=== PATIENT | female | born 1960 | race Caucasian/White ===

== ENCOUNTER → 2017-08-19 | Outpatient (CLI) | payer OTHER ==
[2017-08-19 12:38] LABS: BASO % 0.7 % (0.0-1.0); EOS # 0.1 10^3/uL (0.0-0.50); HEMATOCRIT 35.6 % (36.0-47.0); HEMOGLOBIN 11.5 g/dl (12.0-16.0); IMMATURE GRANULOCYTE % 0.2 % (0-3.0); LYMPH # 1.6 10^3/uL (1.5-4.5); LYMPH % 25.4 % (24.0-44.0); MEAN CORPUSCULAR HEMOGLOBIN 31.5 pg (27.0-33.0); MEAN CORPUSCULAR HGB CONC 32.3 g/dl (32.0-36.5); MEAN CORPUSCULAR VOLUME 97.5 fl (80.0-96.0); MONO # 0.3 10^3/uL (0.0-0.8); MONO % 5.4 % (0.0-5.0); NEUTROPHILS # 4.1 10^3/uL (1.8-7.7); NEUTROPHILS % 66.3 % (36.0-66.0); PLATELET COUNT, AUTOMATED 230 10^3/uL (150-450); RED BLOOD COUNT 3.65 10^6/uL (4.00-5.40); RED CELL DISTRIBUTION WIDTH 11.9 % (11.5-14.5); WHITE BLOOD COUNT 6.1 10^3/uL (4.0-10.0)
[2017-08-19 13:14] LABS: ALBUMIN/GLOBULIN RATIO 1.33 (1.00-1.93); ALKALINE PHOSPHATASE 49 U/L (45-117); ALT/SGPT 22 U/L (12-78); ANION GAP 7 MEQ/L (8-16); AST/SGOT 13 U/L (7-37); BILIRUBIN,TOTAL 0.3 MG/DL (0.2-1.0); BLOOD UREA NITROGEN 13 MG/DL (7-18); CALCIUM LEVEL 8.8 MG/DL (8.5-10.1); CARBON DIOXIDE LEVEL 29 MEQ/L (21-32); CHLORIDE LEVEL 106 MEQ/L (98-107); CHOLESTEROL LEVEL 171 MG/DL (<200); CREATININE FOR GFR 0.68 MG/DL (0.55-1.30); FREE T3 2.7 PG/ML (2.2-4.0); FREE T4 0.77 NG/DL (0.76-1.46); GLOMERULAR FILTRATION RATE > 60.0 (>51); GLUCOSE, FASTING 89 MG/DL (70-100); HDL CHOLESTEROL 83 MG/DL (>40); LDL CHOLESTEROL 58.8 MG/DL (<100); NON-HDL-C 88 MG/DL; POTASSIUM SERUM 4.2 MEQ/L (3.5-5.1); SODIUM LEVEL 142 MEQ/L (136-145); THYROID STIMULATING HORMONE 0.802 uIU/ML (0.358-3.740); TRIGLYCERIDES LEVEL 146 MG/DL (<150)
== END ==
LOC: M WUC 10:22
DX: M35.00 Sjogren syndrome, unspecified (principal); E03.9 Hypothyroidism, unspecified; Z13.220 Encounter for screening for lipoid disorders

== ENCOUNTER 2017-08-20 15:54 | Emergency (ER) | payer OTHER ==
[2017-08-20] MEDS: ONDANSETRON 4MG/2ML VIAL (J2405) IV (18:11)
[2017-08-20] MEDS: KETOROLAC 30 MG/ML VIAL (J1885) IV (18:12)
[2017-08-20] MEDS: MORPHINE 4 MG/ML 1ML VIAL (J2270) IV (19:05)
== END 2017-08-20 19:59 | disposition home or self-care (01) ==
LOC: M ED 15:54
DX: M54.12 Radiculopathy, cervical region (principal); H69.91 Unspecified Eustachian tube disorder, right ear; F41.9 Anxiety disorder, unspecified; F33.9 Major depressive disorder, recurrent, unspecified; Z79.899 Other long term (current) drug therapy; Z79.890 Hormone replacement therapy; Z88.8 Allergy status to other drugs, medicaments and biological substances; Z91.041 Radiographic dye allergy status
CPT/HCPCS: J2270

== ENCOUNTER → 2017-09-15 | Outpatient (CLI) | payer OTHER | LOC: M PAIN 14:45 | DX: M96.1 Postlaminectomy syndrome, not elsewhere classified (principal); M54.12 Radiculopathy, cervical region; M32.9 Systemic lupus erythematosus, unspecified; M79.7 Fibromyalgia; G43.909 Migraine, unspecified, not intractable, without status migrainosus; M35.00 Sjogren syndrome, unspecified; Z79.899 Other long term (current) drug therapy; Z88.1 Allergy status to other antibiotic agents; Z91.013 Allergy to seafood | CPT/HCPCS: G0463 ==

== ENCOUNTER → 2018-02-27 | Outpatient (REF) | payer OTHER | LOC: M LAB REF 18:36 | DX: R30.0 Dysuria (principal) ==

== ENCOUNTER → 2018-12-08 | Outpatient (CLI) | payer OTHER ==
[~2018-12-08] MED LIST: CEFD1CAP8 PO; CYCL10TA; FOLI1TAB11; HYDR200T3; IBUP-1114 PO; LEVO25TA5; LYRI75CA PO; METO1TAB32; PERC5TAB12 PO; PILO5TAB3; RIZA10TA4; TRAM50TA2; TYLE325T5 PO; VENL150C43; ZOLP5TAB
[2018-12-08 12:10] LABS: ALBUMIN 3.9 GM/DL (3.2-5.2); ALT/SGPT 35 U/L (12-78); BILIRUBIN,TOTAL 0.1 MG/DL (0.2-1.0); BLOOD UREA NITROGEN 17 MG/DL (7-18); CALCIUM LEVEL 8.9 MG/DL (8.5-10.1); CARBON DIOXIDE LEVEL 30 MEQ/L (21-32); CHLORIDE LEVEL 103 MEQ/L (98-107); CREATININE FOR GFR 0.74 MG/DL (0.55-1.30); FREE T4 0.77 NG/DL (0.76-1.46); GLOMERULAR FILTRATION RATE > 60.0 (>51); GLUCOSE, FASTING 78 MG/DL (70-100); POTASSIUM SERUM 4.2 MEQ/L (3.5-5.1); SODIUM LEVEL 139 MEQ/L (136-145); TOTAL PROTEIN 7.4 GM/DL (6.4-8.2)
[2018-12-08 12:29] LABS: FREE T3 2.8 PG/ML (2.2-4.0)
== END ==
LOC: M LAB 10:42
PROVIDERS: ATTEND Nurse Practitioner Family
DX: E03.9 Hypothyroidism, unspecified (principal)

== ENCOUNTER → 2018-12-09 | Outpatient (CLI) | payer OTHER ==
--- NOTE | 2018-12-27 00:18 | ECWPNPC ---
PATIENT NAME: FERNANDO CINTRON : 1960 GENDER: FEMALE VISIT DATE: 12/09/2018 DISCHARGE DATE: 12/09/18 1057 VISIT LOCKED DATE TIME: PHYSICIAN: RAFAEL MICHAELS RESOURCE: RAFAEL MICHAELS REASON FOR APPOINTMENT 1. LUPUS FLAREUP HISTORY OF PRESENT ILLNESS HISTORY OF PRESENT ILLNESS: HERE FOR F/U OF CHRONIC PAIN ASSOCIATED WITH LUPUS.HAVING SEVERE FLARE UP OF LEG PAIN AND GENERALIZED JOINT PAIN.RATING PAIN VAS 6/10.HAS BEEN OFF LUPUS MEDICATION.DESCRIBES PAIN GENERALIZED JOINT PAIN AND DEEP ACHING.HAS BEEN WITHOUT PAIN MEDICATION FOR SEVERAL MONTHS LAST VISIT HERE WAS SEVERAL MONTHS AGO. PAIN THE PATIENT DESCRIBES THE PAIN... FALL RISK SCREENING: SCREENING :NO FALLS REPORTED IN THE LAST YEAR CURRENT MEDICATIONS TAKING LEVOTHYROXINE SODIUM 25 MCG TABLET 1 TABLET ON AN EMPTY STOMACH IN THE MORNING ORALLY ONCE A DAY TAKING FOLIC ACID 1 MG TABLET 1 TABLET ORALLY ONCE A DAY TAKING EFFEXOR XR 150 MG CAPSULE EXTENDED RELEASE 24 HOUR 1 CAPSULE WITH FOOD ORALLY ONCE A DAY TAKING CALCIUM + D3 600-200 MG-UNIT TABLET 1 TABLET WITH A MEAL ORALLY ONCE A DAY TAKING MELATONIN 10 MG CAPSULE ORALLY TAKING MAXALT 10 MG TABLET 1 TABLET NEEDED ONE TIME ORALLY ONCE A DAY TAKING METOPROLOL SUCCINATE ER 25 MG TABLET EXTENDED RELEASE 24 HOUR 1 TABLET ORALLY ONCE A DAY TAKING MOTRIN 800 MG TABLET 1 TABLET WITH FOOD OR MILK NEEDED ORALLY THREE TIMES A DAY NOT-TAKING FLEXERIL 10 MG TABLET 2 TABLET NEEDED ORALLY BEFORE BEDTIME NOT-TAKING HYDROXYCHLOROQUINE 200 MG 2 TABS ORALLY DAILY NOT-TAKING PILOCARPINE HCL 5 MG TABLET 1 TABLET ORALLY THREE TIMES A DAY NOT-TAKING AMBIEN 5 MG TABLET 1 TABLET AT BEDTIME ORALLY ONCE A DAY NOT-TAKING LYRICA 75 MG CAPSULE 1 CAP ORALLY BID MDD2 NOT-TAKING PERCOCET 5-325 MG TABLET 1 TABLET NEEDED ORALLY EVERY 6 HRS PRN MDD4 NOT-TAKING ULTRAM 50 MG TABLET 1 TABLET NEEDED ORALLY EVERY 6 HRS PRN MDD4 MEDICATION LIST REVIEWED AND RECONCILED WITH THE PATIENT PAST MEDICAL HISTORY 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 HOSPITALIZATION/MAJOR DIAGNOSTIC PROCEDURE SEE ABOVE REVIEW OF SYSTEMS REVIEWED BY: PROVIDER: RAFAEL MOSLEY . CONSTITUTIONAL: ANY CHANGE IN YOUR MEDICAL CONDITION? NO . CHILLS NO . FEVER NO . INFECTION: DO YOU HAVE NEW INFECTIONS? NO . DO YOU HAVE HISTORY OF MRSA? NO . MUSCULOSKELETAL: ANY NEW PATTERNS OF PAIN OR NUMBNESS? YES PT REPORTS AN EXACERBATION OF HER LUPUS, AND A GENERALIZED INCREASE IN PAIN . GASTROENTEROLOGY: ANY NEW CHANGE IN BOWEL CONTROL? NO . GENITOURINARY: ANY NEW CHANGE IN BLADDER CONTROL? NO . IS THERE A CHANCE YOU COULD BE ? NO . HEMATOLOGY/LYMPH: DO YOU TAKE ANY BLOOD THINNERS? (FOR EXAMPLE- COUMADIN, PLAVIX, AGGRENOX, PLATEL, PRADAXA, OR XARELTO) NO . WHEN WAS YOUR LAST DOSE? DATE: TIME: . NEUROLOGY: HAVE YOU FALLEN IN THE PAST 12 MONTHS? YES PT REPORTS SHE CATCHES HER TOES, AND HAS FALLEN. DENIES INJURY, NO ED VISIT . ANY NEW EXTREMITY NUMBNESS OR WEAKNESS? YES PT REPORTS A NEW NUMBNESS/TINGLING IN RIGHT UPPER ARM EXTENDING TO NECK AND FACE . CARDIOLOGY: DO YOU HAVE A PACEMAKER OR DEFIBRILLATOR? NO . RESPIRATORY: HAVE YOU BEEN SICK IN THE PAST WEEK? NO . FEVER NO . FLU LIKE SYMPTOMS? NO . COUGH NO . INTEGUMENTARY: DO YOU HAVE ANY RASHES OR OPEN SORES? YES FROM LUPUS . ALLERGIC/IMMUNO: ARE YOU ALLERGIC TO IV DYE? YES . ANY NEW ALLERGIES? NO . PSYCHIATRIC: DO YOU HAVE THOUGHTS OF HURTING YOURSELF OR SOMEONE ELSE? NO . ARE YOU ABUSED, NEGLECTED, OR IN AN UNSAFE ENVIRONMENT? NO . ENDOCRINOLOGY: ARE YOU DIABETIC? NO . OTHER: DO YOU NEED ANY PRESCRIPTIONS? NO . IF YES, PLEASE LIST: ____ . ANY NEW PROBLEMS WITH YOUR MEDICATIONS? NO . WHEN DID YOU LAST EAT? ____ . WHEN DID YOU LAST DRINK? ____ . WHAT DID YOU LAST DRINK? ____ . NAME OF PERSON DRIVING YOU HOME? ____ . DO YOU HAVE ANY OTHER QUESTIONS OR CONCERNS PT IS HAVING A FLARE UP OF HER LUPUS AND WOULD LIKE TO DISCUSS GOING BACK ON LYRICA, PERCOCET AGAIN . VITAL SIGNS WT 174.4 LBS, HT 68 IN, BMI 26.51 INDEX, BP 135/72 MM HG, HR 78 /MIN, RR 20 /MIN, TEMP 97.4 F, OXYGEN SAT % 96%, SAFE IN ENV? (Y/N) YES, NA INITIALS SC 10:03, REVIEWED BY: CRYSTAL. EXAMINATION GENERAL EXAMINATION: GENERAL APPEARANCE:ALERT,NO ACUTE DISTRESS. PSYCHAFFECT NORMAL. NECK:TRACHEA MIDLINE. NO CERVICAL OR SUPRACLAVICULAR LYMPHADENOPATHY NOTED. LUNGS:LUNG HOOPER ARE CLEAR TO AUSCULTATION BILATERALLY. GOOD MOVEMENT OF AIR. HEART:S1, S2 IN A REGULAR RATE AND RHYTHM. NO SIGNIFICANT MURMURS, RUBS OR GALLOPS NOTED. MUSCULOSKELETAL:MUSCLE STRENGTH TESTING 5/5 BILATERAL UPPER AND LOWER ETREMITIES. , PALPATION: POSITIVE FOR PAIN OVER C SPINE. POSITIVE FOR PAIN OVER CERVICAL PARASPINALS L>R NORMAL SENSATION TO LIGHT TOUCH,UPPER AND LOWER EXTREMITIES. DIAGNOSTIC:MRI C [id number]-REVIEWED. ASSESSMENTS INFLAMMATORY ARTHROPATHY - M19.90 (PRIMARY) TREATMENT INFLAMMATORY ARTHROPATHY START MEDROL TABLET THERAPY PACK, 4 MG, DIRECTED, ORALLY, DIRECTED, 1, REFILLS 0 START PLAQUENIL TABLET, 200 MG, 1 TABLET WITH FOOD OR MILK, ORALLY, ONCE A DAY, 30 DAYS, 30 TABLET, REFILLS 2 START PERCOCET TABLET, 5-325 MG, 1 TABLET NEEDED, ORALLY, EVERY 6 HRS PRN MDD4, 30 DAYS, 120, REFILLS 0 NOTES: ISTOP REGISTRY REVIEWED . , RISKS AND BENEFITS OF NARCOTIC/OPIOD MEDICATIONS WERE REVIEWED WITH PATIENT - THIS INCLUDES BUT IS NOT LIMITED TO RISK OF DEPENDANCE/DEVELOPMENT OF ADDICTION, MOOD DISTURBANCE AND DEPRESSION, OSTEOPOROSIS, HORMONAL AND LABIDAL CHANGES, RESPIRATORY DEPRESSION AND . PATIENT IS ADVISED NOT TO DRIVE OR DRINK ALCOHOL WHILE ON THESE MEDICATIONS, [facility] NARCOTIC AGREEMENT WAS REVIEWED AND SIGNED TODAY BY THE PATIENT. SEE ATTACHED DOCUMENT FOR FULL DETAILS; SPECIFIC ISSUES WERE REVIEWED: 1) KEEP PAIN MEDS IN THEIR ORIGINAL BOTTLES AND ANY WEEKLY PLANNERS ARE TO BE BROUGHT TO THE PAIN CENTER AT EVERY VISIT. 2) THE PATIENT IS NOT TO INCREASE DOSING OR TIMING OF THEIR PAIN MEDICATION WITHOUT SPECIFIC DIRECTION OF THEIR PAIN CENTERPROVIDER (NOT ER OR OTHER PROVIDERS). 3) ALL PAIN MEDS ARE TO BE KEPT SECURED, IN A LOCKED BOX. 4) NO PAIN MEDS ARE TO BE SHARED WITH ANY OTHER PERSON FOR ANY REASON. 5) NO PAIN MEDS MAY BE TAKEN FROM ANY FRIENDS OR RELATIVES FOR ANY REASON 6) NO MEDS OR SUBSTANCES WHICH ARE NOT LEGAL ARE TO BE USED- NO MARIJUANA, NO COCAINE, AMPHETAMINES, HEROIN, OR OTHERS ARE EVER TO BE USED. 7)URINE TESTING IS DONE TO ACCOUNT FOR MEDS AND SUBSTANCES BEING TAKEN AND WILL BE DONE RANDOMLY. PREVENTIVE MEDICINE PAIN CLINIC TEACHING: MEDICATIONS REVIEWED MEDICATION CHANGES, PT STATES SHE IS FAMILIAR WITH THESE MEDS. 12/09/18 LAS. PROCEDURE CODES FA211 ESTABILISHED PATIENT [facility] CHARGE DISPOSITION & COMMUNICATION FOLLOW UP 6 WEEKS ELECTRONICALLY SIGNED BY DIMITRI FAUSTIN ON 12/26/2018 AT 04:47 PM EDT DISCLAIMER : THIS IS A VISIT SUMMARY EXTRACTED FROM THE [employer] CHART. IT IS NOT A COPY OF THE [employer] PROGRESS NOTE. [place]
== END ==
LOC: M PAIN 09:45
PROVIDERS: ATTEND Nurse Practitioner Family
DX: M19.90 Unspecified osteoarthritis, unspecified site (principal); M32.9 Systemic lupus erythematosus, unspecified; G89.29 Other chronic pain; Z79.899 Other long term (current) drug therapy; Z88.0 Allergy status to penicillin; Z91.013 Allergy to seafood

== ENCOUNTER 2019-01-08 11:21 | Emergency (ER) | payer OTHER ==
[~2019-01-08] VITALS: Ht 175.3 cm; Wt 75.0 kg
[2019-01-08] MEDS ORDERED: AMOX875T PO (12:09)
[2019-01-08] MEDS ORDERED: PRED20TA PO (12:09)
[2019-01-08] MEDS ORDERED: ACETAMINOPHEN 500 MG TAB PO ONE (12:15)
[2019-01-08] MEDS ORDERED: BENZOCAINE 20% GEL 9GM TUBE (ANBESOL MAX STRENGTH) TOP ONE (12:15)
[2019-01-08] MEDS ORDERED: LIDOCAINE 2% MDV 20 ML VIAL SC ONE (12:45)
[2019-01-08] MEDS ORDERED: SALA1TAB PO (13:11)
[2019-01-08 13:12] VITALS: BP 133/65
== END 2019-01-08 13:19 | disposition home or self-care (01) ==
LOC: M ED 12:15
DX: S02.5XXA Fracture of tooth (traumatic), initial encounter for closed fracture (principal); K08.89 Other specified disorders of teeth and supporting structures; X58.XXXA Exposure to other specified factors, initial encounter; Y92.9 Unspecified place or not applicable; Y93.9 Activity, unspecified; Y99.9 Unspecified external cause status; E03.9 Hypothyroidism, unspecified; M32.9 Systemic lupus erythematosus, unspecified; F41.9 Anxiety disorder, unspecified; F32.9 Major depressive disorder, single episode, unspecified; Z86.79 Personal history of other diseases of the circulatory system; Z79.899 Other long term (current) drug therapy; Z91.041 Radiographic dye allergy status; Z91.89 Other specified personal risk factors, not elsewhere classified

== ENCOUNTER 2019-01-10 14:30 | Emergency (ER) | payer OTHER ==
[~2019-01-10] VITALS: Ht 175.3 cm; Wt 75.0 kg
[~2019-01-10 14:30] MED LIST changes: +AMOX875T PO; +PRED20TA PO; +SALA1TAB PO
[2019-01-10 17:34] VITALS: BP 137/67
== END 2019-01-10 17:41 | disposition home or self-care (01) ==
LOC: M ED 14:30
DX: K12.0 Recurrent oral aphthae (principal); Z79.899 Other long term (current) drug therapy; Z88.8 Allergy status to other drugs, medicaments and biological substances; Z91.041 Radiographic dye allergy status

== ENCOUNTER → 2019-01-17 | Outpatient (CLI) | payer OTHER ==
--- NOTE | 2019-01-19 00:14 | ECWPNPC ---
PATIENT NAME: FERNANDO CINTRON : 1960 GENDER: FEMALE VISIT DATE: 01/17/2019 DISCHARGE DATE: 01/17/19 1219 VISIT LOCKED DATE TIME: PHYSICIAN: SUSIE VALLADARES RESOURCE: SUSIE VALLADARES REASON FOR APPOINTMENT 1. 6 WKS PER LB/ LUPUS HISTORY OF PRESENT ILLNESS HISTORY OF PRESENT ILLNESS: PAIN THE PATIENT DESCRIBES THE PAIN... 58 YEAR OLD FEMALE IN FOR CHRONIC PAIN FOLLOW UP RELATED TO HER LUPUS. SHE ADMITS TODAY THAT HER PAIN IS AT A 2/10 AND ATTRIBUTES THAT TO A RECENT SHINGLES OUTBREAK IN HER MOUTH. FALL RISK SCREENING: SCREENING :NO FALLS REPORTED IN THE LAST YEAR CURRENT MEDICATIONS TAKING LEVOTHYROXINE SODIUM 25 MCG TABLET 1 TABLET ON AN EMPTY STOMACH IN THE MORNING ORALLY ONCE A DAY TAKING FOLIC ACID 1 MG TABLET 1 TABLET ORALLY ONCE A DAY TAKING EFFEXOR XR 150 MG CAPSULE EXTENDED RELEASE 24 HOUR 1 CAPSULE WITH FOOD ORALLY ONCE A DAY TAKING CALCIUM + D3 600-200 MG-UNIT TABLET 1 TABLET WITH A MEAL ORALLY ONCE A DAY TAKING MELATONIN 10 MG CAPSULE ORALLY AT BEDTIME NEEDED TAKING MAXALT 10 MG TABLET 1 TABLET NEEDED ONE TIME ORALLY ONCE A DAY TAKING METOPROLOL SUCCINATE ER 25 MG TABLET EXTENDED RELEASE 24 HOUR 1 TABLET ORALLY ONCE A DAY TAKING MOTRIN 800 MG TABLET 1 TABLET WITH FOOD OR MILK NEEDED ORALLY THREE TIMES A DAY NEEDED TAKING PLAQUENIL 200 MG TABLET 1 TABLET WITH FOOD OR MILK ORALLY ONCE A DAY TAKING PERCOCET 5-325 MG TABLET 1 TABLET NEEDED ORALLY EVERY 6 HRS PRN MDD4 TAKING AUGMENTIN 875-125 MG TABLET 1 TABLET ORALLY EVERY 12 HRS NOT-TAKING MEDROL 4 MG TABLET THERAPY PACK DIRECTED ORALLY DIRECTED NOT-TAKING FLEXERIL 10 MG TABLET 2 TABLET NEEDED ORALLY BEFORE BEDTIME NOT-TAKING HYDROXYCHLOROQUINE 200 MG 2 TABS ORALLY DAILY NOT-TAKING PILOCARPINE HCL 5 MG TABLET 1 TABLET ORALLY THREE TIMES A DAY NOT-TAKING AMBIEN 5 MG TABLET 1 TABLET AT BEDTIME ORALLY ONCE A DAY NOT-TAKING LYRICA 75 MG CAPSULE 1 CAP ORALLY BID MDD2 NOT-TAKING PERCOCET 5-325 MG TABLET 1 TABLET NEEDED ORALLY EVERY 6 HRS PRN MDD4 NOT-TAKING ULTRAM 50 MG TABLET 1 TABLET NEEDED ORALLY EVERY 6 HRS PRN MDD4 MEDICATION LIST REVIEWED AND RECONCILED WITH THE PATIENT PAST MEDICAL HISTORY 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 LUPUS (SLE) FIBROMYALGIA SHOULDER BURSITIS ANKYLOSING SPONDYLITIS MIGRAINE HX PE HX SINUS TACHYCARDIA SJOGREN'S DISEASE HEMMORHAGE S/P C SECTION TO SHOCK, REQUIRED 7 UNITS OF BLOOD SHINGLES ALLERGIES ERYTHROMYCIN: VOMITING SHELLFISH: ANAPHYLAXIS - ALLERGY SURGICAL HISTORY CERVICAL ANTERIOR DECOMPRESSIVE DISCECTOMY WITH BONE GRAFT C7-T1 NERVE DECOMPRESSION TO RIGHT LEG LEFT CARPAL TUNNEL SURGERY C SECTION 1985 C SECTION AND HYSERECTOMY 1990 FAMILY HISTORY FATHER: ALIVE, ALZHEIMER'S MOTHER: ALIVE 76 YRS, BREAST CANCER, DIAGNOSED WITH HEART DISEASE SOCIAL HISTORY GENERAL: TOBACCO USE ARE YOU A:NONSMOKER PAIN CLINIC PFS, CLERGY, PUBLIC HEALTH REFERRALS HAS THE PATIENT BEEN EDUCATED REGARDING HIS/HER PLAN OF CARE?YES HAS THE PATIENT BEEN EDUCATED REGARDING PAIN, THE RISK FOR PAIN, THE IMPORTANCE OF EFFECTIVE PAIN MANAGEMENT, AND THE PAIN ASSESSMENT PROCESS?YES CAFFEINE CAFFEINE USE? OCCASIONAL MONSTER DRINK IF NEEDED ADVANCE DIRECTIVE ADVANCE DIRECTIVE DISCUSSED WITH PATIENT:YES HCPIS KALEY CINTRON [phone] EDUCATION LEVEL OF EDUCATION:FINISHED COLLEGE [employer]AN [id number] YARSANISM LANGUAGE LANGUAGES SPOKEN:JORDANIAN ALCOHOL SCREENING DID YOU HAVE A DRINK CONTAINING ALCOHOL IN THE PAST YEAR?YES HOW OFTEN DID YOU HAVE A DRINK CONTAINING ALCOHOL IN THE PAST YEAR?TWO TO THREE TIMES PER WEEK (3 POINTS) HOW MANY DRINKS DID YOU HAVE ON A TYPICAL DAY WHEN YOU WERE DRINKING IN THE PAST YEAR?3 OR 4 (1 POINT) HOW OFTEN DID YOU HAVE SIX OR MORE DRINKS ON ONE OCCASION IN THE PAST YEAR?MONTHLY (2 POINTS) POINTS6 INTERPRETATIONPOSITIVE RECREATIONAL DRUG USE DRUG USE?NO 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 HOSPITALIZATION/MAJOR DIAGNOSTIC PROCEDURE SEE ABOVE PULMONARY EMBOLUS REVIEW OF SYSTEMS REVIEWED BY: PROVIDER: KARAN VALLADARES POMPOM MAKER-C . CONSTITUTIONAL: ANY CHANGE IN YOUR MEDICAL CONDITION? YES - SHINGLES - STILL ON ANTIBIOTIC . CHILLS NO . FEVER NO . INFECTION: DO YOU HAVE NEW INFECTIONS? NO . DO YOU HAVE HISTORY OF MRSA? NO . MUSCULOSKELETAL: ANY NEW PATTERNS OF PAIN OR NUMBNESS? YES - RIGHT NECK AND SHOULDER . GASTROENTEROLOGY: ANY NEW CHANGE IN BOWEL CONTROL? NO . GENITOURINARY: ANY NEW CHANGE IN BLADDER CONTROL? NO . IS THERE A CHANCE YOU COULD BE ? NO . HEMATOLOGY/LYMPH: DO YOU TAKE ANY BLOOD THINNERS? (FOR EXAMPLE- COUMADIN, PLAVIX, AGGRENOX, PLATEL, PRADAXA, OR XARELTO) NO . WHEN WAS YOUR LAST DOSE? DATE: TIME: . NEUROLOGY: HAVE YOU FALLEN IN THE PAST 12 MONTHS? YES . ANY NEW EXTREMITY NUMBNESS OR WEAKNESS? NO . CARDIOLOGY: DO YOU HAVE A PACEMAKER OR DEFIBRILLATOR? NO . RESPIRATORY: HAVE YOU BEEN SICK IN THE PAST WEEK? NO . FEVER NO . FLU LIKE SYMPTOMS? NO . COUGH NO . INTEGUMENTARY: DO YOU HAVE ANY RASHES OR OPEN SORES? NO . ALLERGIC/IMMUNO: ARE YOU ALLERGIC TO IV DYE? NO . ANY NEW ALLERGIES? NO . PSYCHIATRIC: DO YOU HAVE THOUGHTS OF HURTING YOURSELF OR SOMEONE ELSE? NO . ARE YOU ABUSED, NEGLECTED, OR IN AN UNSAFE ENVIRONMENT? NO . ENDOCRINOLOGY: ARE YOU DIABETIC? NO . OTHER: DO YOU NEED ANY PRESCRIPTIONS? NO . IF YES, PLEASE LIST: ____ . ANY NEW PROBLEMS WITH YOUR MEDICATIONS? NO . WHEN DID YOU LAST EAT? ____ . WHEN DID YOU LAST DRINK? ____ . WHAT DID YOU LAST DRINK? ____ . NAME OF PERSON DRIVING YOU HOME? ____ . DO YOU HAVE ANY OTHER QUESTIONS OR CONCERNS NO . VITAL SIGNS WT 178.8 LBS, HT 68 IN, BMI 27.18 INDEX, BP 130/86 MM HG, HR 102 /MIN, RR 18 /MIN, TEMP 97.7 F, OXYGEN SAT % 99%, NA INITIALS SC 11:49, REVIEWED BY: MENDOZA. EXAMINATION GENERAL EXAMINATION: GENERALNO ACUTE DISTRESS, WELL NOURISHED AND HYDRATED. PSYCHAPPROPRIATE MOOD AND AFFECT . LUNGS:CLEAR TO AUSCULTATION BILATERALLY, NO WHEEZES, RHONCHI, RALES. HEART:NO MURMURS, REGULAR RATE AND RHYTHM. ASSESSMENTS INFLAMMATORY ARTHROPATHY - M19.90 (PRIMARY) TREATMENT INFLAMMATORY ARTHROPATHY CLINICAL NOTES: 58 YEAR OLD FEMALE IN FOR LUPUS PAIN FOLLOW UP. GIVEN PRESENTING SYMPTOMS AND RESULTS OF PHYSICAL EXAMINATION RECOMMENDED FOLLOW UP SHOULD HER SYMPTOMS RETURN. PATIENT HAS EXPRESSED UNDERSTANDING OF AND WAS IN AGREEMENT WITH TX PLAN. GIVEN TIME TO ASK QUESTIONS AND EXPRESS CONCERNS. , ISTOP REGISTRY REVIEWED AND DEMONSTRATES COMPLLIANCE. (REF # ) BRINGS IN MEDICATIONS WHICH IS APPROPRIATE FOR WHAT WAS DISPENSED. RECENT URINE TOXICOLOGY REVIEWED. NO UNAUTHORIZED MEDICATIONS. NO ILLICIT SUBSTANCES AND PRESCRIBED MEDICATIONS WERE PRESENT. PROCEDURE CODES FA211 ESTABILISHED PATIENT [facility] CHARGE DISPOSITION & COMMUNICATION ELECTRONICALLY SIGNED BY DIMITRI CRONIN ON 01/18/2019 AT 10:57 AM EDT DISCLAIMER : THIS IS A VISIT SUMMARY EXTRACTED FROM THE [employer] CHART. IT IS NOT A COPY OF THE [employer] PROGRESS NOTE. [place]
== END ==
LOC: M PAIN 11:45
PROVIDERS: ATTEND Family Medicine
DX: M19.90 Unspecified osteoarthritis, unspecified site (principal); M79.7 Fibromyalgia; M75.50 Bursitis of unspecified shoulder; M45.9 Ankylosing spondylitis of unspecified sites in spine; G43.909 Migraine, unspecified, not intractable, without status migrainosus; M35.00 Sjogren syndrome, unspecified; M54.12 Radiculopathy, cervical region; Z79.891 Long term (current) use of opiate analgesic; Z79.899 Other long term (current) drug therapy; Z88.1 Allergy status to other antibiotic agents; Z91.013 Allergy to seafood

== ENCOUNTER → 2019-09-14 | Outpatient (CLI) | payer OTHER ==
[~2019-09-14] MED LIST changes: -RIZA10TA4; +RIZA10TA58
[2019-09-14 11:33] LABS: HEMATOCRIT 36.2 % (36.0-47.0); HEMOGLOBIN 11.8 g/dl (12.0-15.5); MEAN CORPUSCULAR HEMOGLOBIN 31.1 pg (27.0-33.0); MEAN CORPUSCULAR HGB CONC 32.6 g/dl (32.0-36.5); MEAN CORPUSCULAR VOLUME 95.3 fl (80.0-96.0); PLATELET COUNT, AUTOMATED 225 10^3/uL (150-450); WHITE BLOOD COUNT 7.2 10^3/uL (4.0-10.0)
[2019-09-14 11:58] LABS: ALBUMIN 4.3 GM/DL (3.2-5.2); ALT/SGPT 31 U/L (12-78); BILIRUBIN,TOTAL 0.2 MG/DL (0.2-1.0); BLOOD UREA NITROGEN 25 MG/DL (7-18); CALCIUM LEVEL 9.4 MG/DL (8.5-10.1); CARBON DIOXIDE LEVEL 27 MEQ/L (21-32); CHLORIDE LEVEL 102 MEQ/L (98-107); CREATININE FOR GFR 0.72 MG/DL (0.55-1.30); GLOMERULAR FILTRATION RATE > 60.0 (>51); GLUCOSE, FASTING 82 MG/DL (70-100); POTASSIUM SERUM 4.4 MEQ/L (3.5-5.1); RHEUMATOID FACTOR QUANT < 10.0 IU/ML (<15.0); SODIUM LEVEL 136 MEQ/L (136-145); TOTAL PROTEIN 7.5 GM/DL (6.4-8.2)
[2019-09-14 12:17] LABS: ERYTHROCYTE SEDIMENTATION RATE 12 mm/hr (0-30)
[2019-09-16 00:11] LABS: ANTI DOUBLE STRAND-DNA AB <1 IU/mL (0-9); ANTINUCLEAR ANTIBODIES DIRECT Positive (Negative); CYCLIC CITRULLINATED PEPTIDE 8 units (0-19); RNP ANTIBODIES <0.2 AI (0.0-0.9); SJOGREN'S ANTI SS-A <0.2 AI (0.0-0.9); SJOGREN'S ANTI SS-B 1.1 AI (0.0-0.9); SMITH ANTIBODIES <0.2 AI (0.0-0.9)
== END ==
LOC: M LAB 10:32
PROVIDERS: ATTEND Registered Nurse Community Health
DX: M32.9 Systemic lupus erythematosus, unspecified (principal)

== ENCOUNTER 2019-11-26 19:19 | Emergency (ER) | payer OTHER ==
[~2019-11-26] VITALS: Ht 175.3 cm; Wt 75.0 kg
[~2019-11-26 19:19] MED LIST changes: +CYCL-707; -CYCL10TA
[2019-11-26 19:20] VITALS: BP 171/81
[2019-11-26] MEDS ORDERED: AUGM875T28 PO ×2 (19:39→20:11)
[2019-11-26] MEDS ORDERED: NORC1TAB7 PO (20:11)
[2019-11-26] MEDS ORDERED: NORCO, ANEXSIA 5/325MG TABLET (HYDROcodone/ACETAMINOPHEN) PO ONE (20:15)
== END 2019-11-26 20:17 | disposition home or self-care (01) ==
LOC: M ED 19:19
DX: R68.84 Jaw pain (principal); K02.9 Dental caries, unspecified

== ENCOUNTER 2020-01-06 07:48 | Emergency (ER) | payer OTHER ==
[~2020-01-06] VITALS: Ht 172.7 cm; Wt 77.3 kg
[~2020-01-06 07:48] MED LIST changes: +AUGM875T28 PO; +NORC1TAB7 PO
[2020-01-06 08:36] LABS: BASO # 0.1 10^3/uL (0.0-0.2); BASO % 0.9 % (0.0-1.0); EOS # 0.1 10^3/uL (0.0-0.5); EOS % 2.2 % (0.0-3.0); HEMATOCRIT 36.9 % (36.0-47.0); HEMOGLOBIN 11.8 g/dl (12.0-15.5); LYMPH # 1.8 10^3/uL (1.5-5.0); LYMPH % 33.3 % (24.0-44.0); MEAN CORPUSCULAR HEMOGLOBIN 30.7 pg (27.0-33.0); MEAN CORPUSCULAR VOLUME 96.1 fl (80.0-96.0); MONO # 0.4 10^3/uL (0.0-0.8); MONO % 7.1 % (0.0-5.0); NEUTROPHILS % 55.8 % (36.0-66.0); PLATELET COUNT, AUTOMATED 198 10^3/uL (150-450); RED BLOOD COUNT 3.84 10^6/uL (4.00-5.40); WHITE BLOOD COUNT 5.5 10^3/uL (4.0-10.0)
[2020-01-06] MEDS ORDERED: NS 500 ML IV ONE (08:45)
[2020-01-06 09:08] LABS: ALBUMIN 3.9 GM/DL (3.2-5.2); ALT/SGPT 24 U/L (12-78); BILIRUBIN,DIRECT < 0.1 MG/DL (0.0-0.2); BILIRUBIN,TOTAL 0.2 MG/DL (0.2-1.0); BLOOD UREA NITROGEN 16 MG/DL (7-18); CALCIUM LEVEL 9.1 MG/DL (8.5-10.1); CARBON DIOXIDE LEVEL 27 MEQ/L (21-32); CHLORIDE LEVEL 106 MEQ/L (98-107); CREATININE FOR GFR 0.88 MG/DL (0.55-1.30); GLOMERULAR FILTRATION RATE > 60.0 (>51); GLUCOSE, FASTING 85 MG/DL (70-100); LIPASE 106 U/L (73-393); POTASSIUM SERUM 4.6 MEQ/L (3.5-5.1); SODIUM LEVEL 140 MEQ/L (136-145); THYROID STIMULATING HORMONE 0.983 uIU/ML (0.358-3.740); TOTAL PROTEIN 7.4 GM/DL (6.4-8.2)
--- NOTE | 2020-01-06 09:18 | REP ---
Clinical: Chest pain . Comparison: 05/17/2015 . Findings: The mediastinum and cardiac silhouette are stable and within normal limits for portable technique. The lung oneill are clear without acute consolidation, effusion, or pneumothorax. Skeletal structures are intact. Impression: No acute cardiopulmonary process appreciated. Electronically Signed by Hoang Galindo MD 01/06/2020 09:09 A
[2020-01-06] MEDS ORDERED: ASPI81TA86 PO (14:40)
[2020-01-06 14:45] VITALS: BP 126/62
--- NOTE | 2020-01-06 16:46 | ECGEPIP ---
[facility] - ED Test Date: 2020-01-06 Pat Name: FERNANDO CINTRON Department: Room: - Gender: Female Dormitory Keeper: : 1960 Requested By: Shaunna Ferrari Order Number: [id number] Reading MD: Shaunna Ferrari Measurements Intervals [place] Rate: 80 P: 75 WI: 160 QRS: 10 QRSD: 88 T: -1 QT: 354 QTc: 409 Interpretive Statements SINUS RHYTHM MODERATE ST DEPRESSION similar to prior EKG 05/29/15 Electronically Signed on 01-06-2020 16:46:11 EDT by Shaunna Ferrari
--- NOTE | 2020-01-06 16:48 | ECGEPIP ---
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
== END 2020-01-06 14:59 | disposition home or self-care (01) ==
LOC: M ED 07:48
DX: R07.9 Chest pain, unspecified (principal); R06.02 Shortness of breath; I10 Essential (primary) hypertension; M32.9 Systemic lupus erythematosus, unspecified; M35.00 Sjogren syndrome, unspecified; Z79.899 Other long term (current) drug therapy; Z79.890 Hormone replacement therapy; Z79.82 Long term (current) use of aspirin; Z88.8 Allergy status to other drugs, medicaments and biological substances; Z91.041 Radiographic dye allergy status

== ENCOUNTER → 2020-06-14 | Outpatient (CLI) | payer OTHER ==
[~2020-06-14] MED LIST changes: +ASPI81TA86 PO
[2020-06-14 07:21] LABS: BASO % 0.4 % (0.0-1.0); EOS # 0.1 10^3/uL (0.0-0.5); EOS % 2.7 % (0.0-3.0); HEMATOCRIT 34.9 % (36.0-47.0); LYMPH # 1.6 10^3/uL (1.5-5.0); LYMPH % 35.6 % (24.0-44.0); MEAN CORPUSCULAR HEMOGLOBIN 31.3 pg (27.0-33.0); MEAN CORPUSCULAR HGB CONC 31.5 g/dl (32.0-36.5); MEAN CORPUSCULAR VOLUME 99.4 fl (80.0-96.0); MONO # 0.3 10^3/uL (0.0-0.8); MONO % 6.4 % (0.0-5.0); NEUTROPHILS # 2.5 10^3/uL (1.5-8.5); NEUTROPHILS % 54.5 % (36.0-66.0); PLATELET COUNT, AUTOMATED 186 10^3/uL (150-450); RED BLOOD COUNT 3.51 10^6/uL (4.00-5.40); WHITE BLOOD COUNT 4.5 10^3/uL (4.0-10.0)
[2020-06-14 07:54] LABS: ALBUMIN 3.6 GM/DL (3.2-5.2); ALT/SGPT 22 U/L (12-78); BILIRUBIN,TOTAL 0.2 MG/DL (0.2-1.0); BLOOD UREA NITROGEN 15 MG/DL (7-18); CALCIUM LEVEL 8.5 MG/DL (8.5-10.1); CARBON DIOXIDE LEVEL 26 MEQ/L (21-32); CHLORIDE LEVEL 108 MEQ/L (98-107); CHOLESTEROL LEVEL 187 MG/DL (<200); CHOLESTEROL RISK RATIO 2.226 (<5); CREATININE FOR GFR 0.76 MG/DL (0.55-1.30); GLOMERULAR FILTRATION RATE > 60.0 (>51); GLUCOSE, FASTING 116 MG/DL (70-100); HDL CHOLESTEROL 84 MG/DL (>40); LDL CHOLESTEROL 82 MG/DL (<100); NON-HDL-C 103 MG/DL; POTASSIUM SERUM 3.9 MEQ/L (3.5-5.1); SODIUM LEVEL 140 MEQ/L (136-145); TOTAL PROTEIN 6.3 GM/DL (6.4-8.2); TRIGLYCERIDES LEVEL 107 MG/DL (<150)
[2020-06-14 08:34] LABS: APPEARANCE, URINE CLEAR (CLEAR); BACTERIA, URINE AUTO 1+ (NEGATIVE); BILIRUBIN, URINE AUTO NEGATIVE (NEGATIVE); BLOOD, URINE BLOOD NEGATIVE (NEGATIVE); COLOR, URINE STRAW (YELLOW); GLUCOSE, URINE (UA) AUTO NEGATIVE (NEGATIVE); KETONE, URINE AUTO NEGATIVE (NEGATIVE); LEUKOCYTE ESTERASE, URINE AUTO NEGATIVE (NEGATIVE); MUCUS, URINE SMALL (NEGATIVE); NITRITE, URINE AUTO NEGATIVE (NEGATIVE); PROTEIN, URINE AUTO NEGATIVE (NEGATIVE); RBC, URINE AUTO 0 /HPF (0-3); SPECIFIC GRAVITY URINE AUTO 1.005 (1.002-1.035); SQUAMOUS EPITHELIAL CELL UR AU 1 /HPF (0-6); UROBILINOGEN, URINE AUTO 0.2 mg/dL (0.0-2.0); WBC, URINE AUTO 2 /HPF (0-3)
== END ==
LOC: M LAB 06:34
DX: Z01.818 Encounter for other preprocedural examination (principal); I49.9 Cardiac arrhythmia, unspecified; E78.49 Other hyperlipidemia; I10 Essential (primary) hypertension

== ENCOUNTER → 2020-08-08 | Outpatient (REF) ==
[~2020-08-08] MED LIST changes: +ACET-897 PO; +CYAN100049 PO; +D31000TA2 PO; -FOLI1TAB11; +FOLI1TAB11 PO; -HYDR200T3; +HYDR200T3 PO; -LEVO25TA5; +LEVO25TA5 PO; -METO1TAB32; +METO1TAB32 PO; +OMEP40CA97 PO; +OYST1TAB PO; -RIZA10TA58; +RIZA10TA58 PO; -VENL150C43; +VENL150C43 PO
== END ==
LOC: M LABSMTC 13:23
PROVIDERS: ATTEND Pediatrics
DX: Z20.822 Contact with and (suspected) exposure to COVID-19 (principal)

== ENCOUNTER → 2020-08-12 | Outpatient (REF) | LOC: M LABSMTC 13:16 | PROVIDERS: ATTEND Pediatrics | DX: Z11.52 Encounter for screening for COVID-19 (principal) ==

== ENCOUNTER → 2020-08-14 | Outpatient (CLI) | payer OTHER ==
[2020-08-14 16:04] LABS: ALT/SGPT 29 U/L (12-78); BILIRUBIN,TOTAL 0.3 MG/DL (0.2-1.0); BLOOD UREA NITROGEN 18 MG/DL (7-18); CALCIUM LEVEL 9.3 MG/DL (8.5-10.1); CARBON DIOXIDE LEVEL 30 MEQ/L (21-32); CHLORIDE LEVEL 106 MEQ/L (98-107); CHOLESTEROL LEVEL 227 MG/DL (<200); CHOLESTEROL RISK RATIO 3.067 (<5); GLOMERULAR FILTRATION RATE > 60.0 (>51); GLUCOSE, FASTING 80 MG/DL (70-100); HDL CHOLESTEROL 74 MG/DL (>40); LDL CHOLESTEROL 126 MG/DL (<100); NON-HDL-C 153 MG/DL; POTASSIUM SERUM 4.3 MEQ/L (3.5-5.1); SODIUM LEVEL 141 MEQ/L (136-145); TOTAL PROTEIN 7.2 GM/DL (6.4-8.2); TRIGLYCERIDES LEVEL 137 MG/DL (<150)
[2020-08-14 16:05] LABS: APPEARANCE, URINE CLEAR (CLEAR); BACTERIA, URINE AUTO NEGATIVE (NEGATIVE); BILIRUBIN, URINE AUTO NEGATIVE (NEGATIVE); BLOOD, URINE BLOOD NEGATIVE (NEGATIVE); COLOR, URINE YELLOW (YELLOW); GLUCOSE, URINE (UA) AUTO NEGATIVE (NEGATIVE); KETONE, URINE AUTO NEGATIVE (NEGATIVE); LEUKOCYTE ESTERASE, URINE AUTO NEGATIVE (NEGATIVE); MUCUS, URINE SMALL (NEGATIVE); NITRITE, URINE AUTO NEGATIVE (NEGATIVE); PROTEIN, URINE AUTO NEGATIVE (NEGATIVE); RBC, URINE AUTO 1 /HPF (0-3); SPECIFIC GRAVITY URINE AUTO 1.013 (1.002-1.035); SQUAMOUS EPITHELIAL CELL UR AU 0 /HPF (0-6); UROBILINOGEN, URINE AUTO 0.2 mg/dL (0.0-2.0); WBC, URINE AUTO 0 /HPF (0-3)
[2020-08-14 16:16] LABS: BASO % 0.9 % (0.0-1.0); EOS # 0.1 10^3/uL (0.0-0.5); EOS % 2.4 % (0.0-3.0); HEMATOCRIT 37.6 % (36.0-47.0); HEMOGLOBIN 11.9 g/dl (12.0-15.5); LYMPH # 1.3 10^3/uL (1.5-5.0); LYMPH % 30.7 % (24.0-44.0); MEAN CORPUSCULAR HEMOGLOBIN 31.1 pg (27.0-33.0); MEAN CORPUSCULAR HGB CONC 31.6 g/dl (32.0-36.5); MEAN CORPUSCULAR VOLUME 98.2 fl (80.0-96.0); MONO # 0.3 10^3/uL (0.0-0.8); MONO % 7.5 % (0.0-5.0); NEUTROPHILS # 2.5 10^3/uL (1.5-8.5); PLATELET COUNT, AUTOMATED 223 10^3/uL (150-450); RED BLOOD COUNT 3.83 10^6/uL (4.00-5.40); WHITE BLOOD COUNT 4.2 10^3/uL (4.0-10.0)
[2020-08-14 16:18] LABS: INR 0.97; PROTHROMBIN TIME 13.1 SECONDS (12.5-14.3)
== END ==
LOC: M WUC 11:34
DX: Z01.818 Encounter for other preprocedural examination (principal); I49.9 Cardiac arrhythmia, unspecified; I10 Essential (primary) hypertension; E78.49 Other hyperlipidemia

== ENCOUNTER 2020-08-16 07:40 | Day surgery (SDC) | payer OTHER ==
[~2020-08-16] VITALS: Ht 172.7 cm; Wt 81.2 kg
[~2020-08-16 07:40] MED LIST changes: +LR 1,000 ML IV ONE
--- OUTSIDE RECORDS SUMMARY | 2020-08-16 07:44 | CCD | Continuity of Care Document ---
Author Author Martha BRAVO BRICK WHEELER Organization Unknown Address [address] [place] [address] [place] [address] Phone [phone] Care Team Providers Care Maitre D Name Role Phone [facility] AUTM [phone] [facility] AUTM [phone] Problems Active Problems Provider Date Allergic rhinitis Onset: Myalgia & Myositis Unspecified Onset: Depressive disorder Onset: Pulmonary embolism Onset: Neck pain MAYLIN Jorge Onset: 10/15/2012 Social History Type Date Description Comments Sex Unknown Tobacco Use Start: Unknown End: Unknown Quit 2000 ETOH Use Drinks 5 Alcoholic Beverages Per Week Tobacco Use Start: Unknown End: Unknown Patient is a former smoker Smoking Status Reviewed: 11/18/19 Patient is a former smoker Allergies, Adverse Reactions, Alerts Active Allergies Reaction Severity Comments Date Shellfish Anaphlaxisis 06/01/2009 Iodinated Diagnostic Agents 09/07/2011 Medications Active Medications SIG Qnty Indications Ordering Provide r Date Effexor qd Unknown Maxalt 10mg Tablets 1 tab prn and may repeat x1 in 2 hrs 15tabs Unknown Flexeril 10mg Tablets 1 tab tid prn 15tabs Unknown Zyrtec Allergy 10mg Tablets p rn Unknown Toprol XL 25mg Tablets ER 24HR Unknown Folic Acid 400mcg Tablets Unknown Synthroid 125mcg Tablets Unknown Hydroxychloroquine Sulfate 200mg T ablets Once a day Unknown Immunizations Description No Information Available Vital Signs Date Vital Result Comment 11/18/2019 11:47am BP Systolic 120 mmHg BP Diastolic 71 mmHg Heart Rate 80 /min Respiratory Rate 17 /min O2 % BldC Oximetry 99 % Body Temperature 97.6 F Weight 165.00 lb Height 69 inches 5'9" BMI (Body Mass Index) 24.4 kg/m2 Pain Level 4 05/17/2019 2:41pm BP Systolic 129 mmHg BP Diastolic 78 mmHg Heart Rate 91 /min Respiratory Rate 18 /min O2 % BldC Oximetry 97 % Body Temperature 98.3 F Weight 161.00 lb Height 69 inches 5'9" BMI (Body Mass Index) 23.8 kg/m2 Pain Level 0 Results Description No Information Available Procedures Description No Information Available Medical Devices Description No Information Available Encounters Description No Information Available Assessments Description No Information Available Plan of Treatment No Information Available Functional Status Description No Information Available Mental Status Description No Information Available Referrals Description No Information Available
--- OUTSIDE RECORDS SUMMARY | 2020-08-16 07:44 | CCD | Continuity of Care Document ---
Author Author Martha BRAVO PUNCH PRESS OPERATOR HELPER Organization Unknown Address [address] [place] [address] [place] [address] Phone [phone] Care Team Providers Care Occasional Babysitter Name Role Phone [facility] AUTM [phone] [facility] AUTM [phone] Problems Active Problems Provider Date Allergic rhinitis [...] Available Encounters Description No Information Available Assessments Date Code Description Provider 05/20/2020 Z20.828 Contact with and (burroughs spected) exposure to other viral communicable diseases Yary Bravo NP Plan of Treatment No Information Available Functional Status Description No Information Available Mental Status Description No Information Available Referrals Description No Information Available
--- OUTSIDE RECORDS SUMMARY | 2020-08-16 07:44 | CCD | Continuity of Care Document ---
Author Author [facility] Organization [facility] Address Unknown Phone Unavailable Care Team Providers Care Customer Facilities Supervisor Name Role Phone Naomie Sykes MD Unavailable Unavailable Allergies, Adverse Reactions, Alerts Substance Reaction Status Criticality IODINE Active No Information ibuprofen Active No Information erythromycin base Active No Information Medications Medication Instructions Dosage Effective Dates (start - stop) Sta tus Comments hydroxyzine HCl 10 mg tablet TAKE 1 TABLET BY ORAL ROUTE 3 T IMES EVERY DAY 1 tablet - Active pilocarpine 5 mg tablet take 1 tablet by oral route 3 times every day as needed for dry mouth and dry eyes 5 MG - Active hydroxychloroquine 200 mg tablet take 1 tablet by oral route 2 times every day 200 MG - Active folic acid 1 mg tablet take 1 tablet by oral route every day 1 MG - Active metoprolol tartrate 25 mg tablet take 1 tablet by oral route ev rosa day 25 MG - Active Lidocaine Viscous 2 % mucosal solution take [address] by oral route every 3 hours and swish and spit out 15.00 milliliter - Active Tylenol Extra Strength 500 mg tablet take 2 tablet by oral route every 12 hours as needed 1000 MG - Active Ultram 50 mg tablet take 1 tablet by oral route every 8 hours as needed with food 50 MG - Active Prevacid 30 mg capsule,delayed release take 1 capsule by oral route every day before a meal 30 MG - Active Effexor XR 150 mg capsule,extended release take 1 caps ule by oral route every day 150 MG - Active Synthroid 25 mcg tablet take 1 tablet by oral route every day 25 M CG - Active Flexeril 10 mg tablet take 1 tablet by oral route 2 times ev rosa bedtime 1 tablet - Active Maxalt 10 mg tablet take 1 tablet by oral route once, may repeat at 2 hour intervals; do not exceed 30 mg in 24 hours as needed 10 MG - Active Ambien 5 mg tablet take 1 tablet by oral route every day a t bedtime as needed 5 MG - Active Problems Condition Type Effective Dates (start - stop) Clinical S tatus Comments Sicca syndrome, unspecified Diagnosis interpretation (observable en tity) 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 Diagnosis inter pretation (observable entity) Sicca syndrome, unspecified Diagnosis interpretation (observable en tity) Other half-way (current) drug therapy Diagnosis inter pretation (observable entity) Systemic lupus erythematosus, unspecified Diagnosis in terpretation (observable entity) Sicca syndrome, unspecified Diagnosis interpretation (observable en tity) Other half-way (current) drug therapy Diagnosis inter pretation (observable entity) Oral mucositis (ulcerative), unspecified Diagnosis int erpretation (observable entity) Systemic lupus erythematosus, unspecified Diagnosis in terpretation (observable entity) Sicca syndrome, unspecified Diagnosis interpretation (observable en tity) Polymyalgia rheumatica Diagnosis interpretation (observable entity) Other half-way (current) drug therapy Diagnosis inter pretation (observable entity) Oral mucositis (ulcerative), unspecified Diagnosis int erpretation (observable entity) Systemic lupus erythematosus, unspecified Diagnosis in terpretation (observable entity) Sicca syndrome, unspecified Diagnosis interpretation (observable en tity) Polymyalgia rheumatica Diagnosis interpretation (observable entity) 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 Diagnosis inter pretation (observable entity) Shortness of breath Diagnosis interpretation (observable entity) Low vision, one eye, unspecified eye Diagnosis interpr etation (observable entity) Systemic lupus erythematosus, unspecified Diagnosis in terpretation (observable entity) Sicca syndrome, unspecified Diagnosis interpretation (observable en tity) Polymyalgia rheumatica Diagnosis interpretation (observable entity) Systemic lupus erythematosus, unspecified Diagnosis in terpretation (observable entity) Sicca syndrome, unspecified Diagnosis interpretation (observable en tity) Polymyalgia rheumatica Diagnosis interpretation (observable entity) Polymyalgia rheumatica Diagnosis interpretation (observable entity) Systemic lupus erythematosus, unspecified Diagnosis in terpretation (observable entity) Osteoarthritis Problem (finding) - Active Lupus erythematosus Problem (finding) - Active Headache Problem (finding) - Active Depressive disorder Problem (finding) - Active Anxiety Problem (finding) - Active Ankylosing spondylitis Problem (finding) - Active Pneumonia Problem (finding) - Active Procedures Procedure Date No Information Results Test Name Date and Time Measure Units Reference Range Abnormal Flag St atus Comments No Information Advance Directives Directive Yes / No Effective Date File Name No Information Encounters Encounter Description Practice Location Reason(s) For Visit Diagnose s Date Provider Providers Copied on Encounter [facility], [address] [place] [address], [id number], [place] tel:[phone] [facility] No Information Onel Akbar. [address] [place], [place], [id number], [place]. tel:[phone] [facility], [address] [place] [address], [id number], [place] tel:[phone] [facility] No Information Misty Ferrera. [address] [place], [place], [id number], [place]. tel:[phone] [facility], [address] [place] [address], [id number], [place] tel:[phone] [facility] Sicca syndrome, unspecifiedOther half-way (current) drug therapy Carlton Ferrera. [address] [place], [place], [id number], [place]. tel:[phone] Consulting Provider: Tee Duque, [address] [place], [address]. tel:[phone] Provider: Milton Delvalle MD, [facility] [address] [facility] [address], [place], [address]. tel:[phone] Provider: Mauricio Duque, [address] [facility], [address], [place], [address]. tel:[phone] [facility], [address] [place] [address], [id number], [place] tel:[phone] [facility] Sicca syndrome, unspecifiedOther half-way (current) drug therapy Edward Pardo. [address] [place] [address], [id number], [place]. tel:[phone] Consulting Provider: Tee Young MD, [address] [place], [address]. tel:[phone] Provider: Milton Delvalle MD, [facility] [address] [facility] [address], [place], [address]. tel:[phone] Provider: Mauricio Duque, [address] [facility], [facility] [address], [place], [address]. tel:[phone] [facility], [address] [place] [address], [id number], [place] tel:[phone] [facility] No Information Virgilio Walkerher. [address] [place] [address], [id number], [place]. tel:[phone] [facility], [address] [place] [address], [id number], [place] tel:[phone] [facility] Systemic lupus erythematosus, unspecifiedSicca syndrome, unspecified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Oral mucositis (ulcerative), unspecified Ezekiel Romero. [address] [place] [address], [id number], [place]. tel:[phone] Referring Provider: Mauricio Duque, [address] [facility], [address], [place], [address]. tel:[phone] [facility], [address] [place] [address], [id number], [place] tel:[phone] [facility] Systemic lupus erythematosus, unspecifiedSicca syndrome, unspecifiedPolymyalgia rheumatica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Oral mucositis (ulcerative), unspecified Aj Castorena. [address], [place], [place], [id number], [place]. tel:[phone] Referring Provider: Mauricio Duque, [address], [place], [address]. tel:[phone] [facility], [address] [place] [address], [id number], [place] tel:[phone] [facility] Systemic lupus erythematosus, unspecifiedSicca syndrome, unspecifiedPolymyalgia rheumatica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 Akanksha Castorena. [address], [place], [place], [id number], [place]. tel:[phone] Referring Provider: Mauricio Duque, [address], [address] [place] [address], [address]. tel:[phone] [facility], [address] [place] [address], [id number], [place] tel:[phone] [facility] Shortness of breathLow vision, one eye, unspecified eye Philliplauraradha Long ather. [address] [place] [address], [id number], [place]. tel:[phone] Referring Provider: Mauricio Duque, [address], [address] [place] [address], [address]. tel:[phone] [facility], [address] [place] [address], [id number], [place] tel:[phone] [facility] Systemic lupus erythematosus, unspecifiedSicca syndrome, unspecifiedPolymyalgia rheumatica Aj Castorena. [address], [place], [place], [id number], [place]. tel:[phone] Referring Provider: Mauricio Duque, [address], [place], [address]. tel:[phone] [facility], [address] [place] [address], [id number], [place] tel:[phone] [facility] Systemic lupus erythematosus, unspecifiedSicca syndrome, unspecifiedPolymyalgia rheumatica Aj Castorena. [address], [place], [place], [id number], [place]. tel:[phone] Referring Provider: Mauricio Duque, [address] [facility], [place], [address]. tel:[phone] [facility], [address] [place] [address], [id number], [place] tel:[phone] [facility] Polymyalgia rheumaticaSystemic lupus erythematosus, unspecified Valente Castorena. [address], [place], [place], [id number], [place]. tel:[phone] Referring Provider: Mauricio Duque, [address], [place], [address]. tel:[phone] [facility], [address] [place] [address], [id number], [place] tel:[phone] [facility] No Information Deborah Shaffer. [address] [place], [place], [id number], [place]. tel:[phone] Referring Provider: Mauricio Duque, [address] [facility], [address], [place], [address]. tel:[phone] [facility], [address] [place] [address], [id number], [place] tel:[phone] [facility] No Information Aj Castorena. [address], [place], [place], [id number], [place]. tel:[phone] Referring Provider: Mauricio MOSLEY D, [address] [facility], [address], [place], [address]. tel:[phone] Family History Family Member Type Diagnosis Age At Onset Brother Problem (finding) Hypertension Mother Problem (finding) Heart disease Mother Problem (finding) Arthritis Immunizations Vaccine Date Status Comments Influenza, injectable, quadrivalent, spl it virus, 18 years or older Afluria Quad administered Note: Invalid docume nted admin date was . ; Source: Other Provider Influenza, split virus, injectable, 3 years and older Fluvirin [id number] administered Source: Other Provider Influenza virus vaccine, Injection administered Source: Other Provider Pneumococcal polysaccharide PPV23 administered Note: Invalid documented admin date was /. ; Source: Other Provider pneumo (2 yrs or older) (PPV23) administered Source: Other Provider Payers Payer name Insurance type Covered constitution party ID Authorization(s ) [facility] [id number] Social History Type Description Quantity Date Captured Comments Sex Female Smoking Status No Information Vital Signs Date / Time: Height Weight BMI Pulse Rate Blood Pressure Temperatu re Respiratory Rate Body Surface Area Head Circumference BMI percentile Pulse Ox In haled Ox No Information Chief Complaint And Reason For Visit No Information Reason For Referral Reason For Referral No Information Plan Of Treatment Date Type Action Status No Information History Of Present Illness Encounter Date Complaint History Of Present I llness No Information Functional Status Date Functional Assessment No Information Medications Administered Medication Instructions Dosage Effective Dates (start - stop) Sta tus Comments No Information Instructions Date Instruction Additional Informati on Risks/benefits of medications reviewed Labs ordered to check disease activity. Labs ordered to check blood counts, liver and kidney functions to monitor safety of medication. Discussed / Reviewed Labs hold medication and call if any side eff ect develops continue same medication plan call if symptoms worsen Physical Examination Exam Findings Details No Information
--- OUTSIDE RECORDS SUMMARY | 2020-08-16 07:45 | CCD ---
Author Author [facility] Organization [facility] Address Unknown Phone Unavailable Care Team Providers Care Warp Knitter Name Role Phone Jorge, L Dee INSURANCE ADJUSTER Unavailable Unavailable Jorge, L Dee INSURANCE ADJUSTER Unavailable Unavailable Jorge, L Dee INSURANCE ADJUSTER Unavailable Unavailable Jorge, L Dee INSURANCE ADJUSTER Unavailable Unavailable Jorge, L Dee INSURANCE ADJUSTER Unavailable Unavailable [place], L Dee INSURANCE ADJUSTER Unavailable Unavailable Jorge, L Dee INSURANCE ADJUSTER Unavailable Unavailable [place], L Dee INSURANCE ADJUSTER Unavailable Unavailable [place], L Dee INSURANCE ADJUSTER Unavailable Unavailable Jorge, L Dee INSURANCE ADJUSTER Unavailable Unavailable [place], L Dee INSURANCE ADJUSTER Unavailable Unavailable [place], L Dee INSURANCE ADJUSTER Unavailable Unavailable [place], L Dee INSURANCE ADJUSTER Unavailable Unavailable [place], L Dee INSURANCE ADJUSTER Unavailable Unavailable Jorge, L Dee INSURANCE ADJUSTER Unavailable Unavailable Jorge, L Dee INSURANCE ADJUSTER Unavailable Unavailable Jorge, L Dee INSURANCE ADJUSTER Unavailable Unavailable [place], L Dee INSURANCE ADJUSTER Unavailable Unavailable [place], L Dee INSURANCE ADJUSTER Unavailable Unavailable [place], L Dee INSURANCE ADJUSTER Unavailable Unavailable [place], L Dee INSURANCE ADJUSTER Unavailable Unavailable Jorge, L Dee INSURANCE ADJUSTER Unavailable Unavailable Jorge, L Dee INSURANCE ADJUSTER Unavailable Unavailable Jorge, L Dee INSURANCE ADJUSTER Unavailable Unavailable [place], L Dee INSURANCE ADJUSTER Unavailable Unavailable [place], L Dee INSURANCE ADJUSTER Unavailable Unavailable Jorge, L Dee INSURANCE ADJUSTER Unavailable Unavailable Jorge, L Dee INSURANCE ADJUSTER Unavailable Unavailable [place], L Dee INSURANCE ADJUSTER Unavailable Unavailable Jorge, L Dee INSURANCE ADJUSTER Unavailable Unavailable Jorge, L Dee INSURANCE ADJUSTER Unavailable Unavailable Jorge, L Dee INSURANCE ADJUSTER Unavailable Unavailable SEPULVEDA SR, GEORGETTE MEDEL MD Unavailable Unavailable SEPULVEDA SR, GEORGETTE MEDEL MD Unavailable Unavailable SEPULVEDA SR, GEORGETTE MEDEL MD Unavailable Unavailable SEPULVEDA SR, GEORGETTE MEDEL MD Unavailable Unavailable SEPULVEDA SR, GEORGETTE MEDEL MD Unavailable Unavailable SEPULVEDA SR, GEORGETTE MEDEL MD Unavailable Unavailable SEPULVEDA SR, GEORGETTE MEDEL MD Unavailable Unavailable SEPULVEDA SR, GEORGETTE MEDEL MD Unavailable Unavailable SEPULVEDA SR, GEORGETTE MEDEL MD Unavailable Unavailable SEPULVEDA SR, GEORGETTE MEDEL MD Unavailable Unavailable SEPULVEDA SR, GEORGETTE MEDEL MD Unavailable Unavailable SEPULVEDA SR, GEORGETTE MEDEL MD Unavailable Unavailable SEPULVEDA SR, GEORGETTE MEDEL MD Unavailable Unavailable SEPULVEDA SR, GEORGETTE MEDEL MD Unavailable Unavailable SEPULVEDA SR, GEORGETTE MEDEL MD Unavailable Unavailable SEPULVEDA SR, GEORGETTE MEDEL MD Unavailable Unavailable SEPULVEDA SR, GEORGETTE MEDEL MD Unavailable Unavailable SEPULVEDA SR, GEORGETTE MEDEL MD Unavailable Unavailable SEPULVEDA SR, GEORGETTE MEDEL MD Unavailable Unavailable SEPULVEDA SR, GEORGETTE MEDEL MD Unavailable Unavailable SEPULVEDA SR, GEORGETTE MEDEL MD Unavailable Unavailable SEPULVEDA SR, GEORGETTE MEDEL MD Unavailable Unavailable SEPULVEDA SR, GEORGETTE MEDEL MD Unavailable Unavailable SEPULVEDA SR, GEORGETTE MEDEL MD Unavailable Unavailable SEPULVEDA SR, GEORGETTE MEDEL MD Unavailable Unavailable SEPULVEDA SR, GEORGETTE MEDEL MD Unavailable Unavailable SEPULVEDA SR, GEORGETTE MEDEL MD Unavailable Unavailable SEPULVEDA SR, GEORGETTE MEDEL MD Unavailable Unavailable SEPULVEDA SR, GEORGETTE MEDEL MD Unavailable Unavailable SEPULVEDA SR, GEORGETTE MEDEL MD Unavailable Unavailable SEPULVEDA SR, GEORGETTE MEDEL MD Unavailable Unavailable SEPULVEDA SR, GEORGETTE MEDEL MD Unavailable Unavailable SEPULVEDA SR, GEORGETTE MEDEL MD Unavailable Unavailable SEPULVEDA SR, GEORGETTE MEDEL MD Unavailable Unavailable SEPULVEDA SR, GEORGETTE MEDEL MD Unavailable Unavailable SEPULVEDA SR, GEORGETTE MEDEL MD Unavailable Unavailable SEPULVEDA SR, GEORGETTE MEDEL MD Unavailable Unavailable SEPULVEDA SR, GEORGETTE MEDEL MD Unavailable Unavailable SEPULVEDA SR, GEORGETTE MEDEL MD Unavailable Unavailable SEPULVEDA SR, GEORGETTE MEDEL MD Unavailable Unavailable SEPULVEDA SR, GEORGETTE MEDEL MD Unavailable Unavailable SEPULVEDA SR, GEORGETTE MEDEL MD Unavailable Unavailable SEPULVEDA SR, GEORGETTE MEDEL MD Unavailable Unavailable SEPULVEDA SR, GEORGETTE MEDEL MD Unavailable Unavailable SEPULVEDA SR, GEORGETTE MEDEL MD Unavailable Unavailable SEPULVEDA SR, GEORGETTE MEDEL MD Unavailable Unavailable SEPULVEDA SR, GEORGETTE MEDEL MD Unavailable Unavailable SEPULVEDA SR, GEORGETTE MEDEL MD Unavailable Unavailable SEPULVEDA SR, GEORGETTE MEDEL MD Unavailable Unavailable SEPULVEDA SR, GEORGETTE MEDEL MD Unavailable Unavailable SEPULVEDA SR, GEORGETTE MEDEL MD Unavailable Unavailable SEPULVEDA SR, GEORGETTE MEDEL MD Unavailable Unavailable SEPULVEDA SR, GEORGETTE MEDEL MD Unavailable Unavailable SEPULVEDA SR, GEORGETTE MEDEL MD Unavailable Unavailable Sylva, Vee RPA-C Unavailable Unavailable Sylva, Vee RPA-C Unavailable Unavailable Sylva, Vee RPA-C Unavailable Unavailable Sylva, Vee RPA-C Unavailable Unavailable Sylva, Vee RPA-C Unavailable Unavailable Sylva, Vee RPA-C Unavailable Unavailable Sylva, Vee RPA-C Unavailable Unavailable Sylva, Vee RPA-C Unavailable Unavailable Sylva, Vee RPA-C Unavailable Unavailable Sylva, Vee RPA-C Unavailable Unavailable Sylva, Vee RPA-C Unavailable Unavailable Sylva, Vee RPA-C Unavailable Unavailable Sylva, Vee RPA-C Unavailable Unavailable Sylva, Vee RPA-C Unavailable Unavailable Sylva, Vee RPA-C Unavailable Unavailable VINICIUS AGUIRRE MD Unavailable Unavailable VINICIUS AGUIRRE MD Unavailable Unavailable VINICIUS AGUIRRE MD Unavailable Unavailable VINICIUS AGUIRRE MD Unavailable Unavailable VINICIUS AGUIRRE MD Unavailable Unavailable VINICIUS AGUIRRE MD Unavailable Unavailable VINICIUS AGUIRRE MD Unavailable Unavailable VINICIUS AGUIRRE MD Unavailable Unavailable VINICIUS AGUIRRE MD Unavailable Unavailable VINICIUS AGUIRRE MD Unavailable Unavailable VINICIUS AGUIRRE MD Unavailable Unavailable VINICIUS AGUIRRE MD Unavailable Unavailable VINICIUS AGUIRRE MD Unavailable Unavailable VINICIUS AGUIRRE MD Unavailable Unavailable VINICIUS AGUIRRE MD Unavailable Unavailable VINICIUS AGUIRRE MD Unavailable Unavailable VINICIUS AGUIRRE MD Unavailable Unavailable VINICIUS AGUIRRE MD Unavailable Unavailable VINICIUS AGUIRRE MD Unavailable Unavailable VINICIUS AGUIRRE MD Unavailable Unavailable VINICIUS AGUIRRE MD Unavailable Unavailable VINICIUS AGUIRRE MD Unavailable Unavailable VINICIUS AGUIRRE MD Unavailable Unavailable VINICIUS AGUIRRE MD Unavailable Unavailable VINICIUS AGUIRRE MD Unavailable Unavailable VINICIUS AGUIRRE MD Unavailable Unavailable VINICIUS AGUIRRE MD Unavailable Unavailable VINICIUS AGUIRRE MD Unavailable Unavailable VINICIUS AGUIRRE MD Unavailable Unavailable VINICIUS AGUIRRE MD Unavailable Unavailable VINICIUS AGUIRRE MD Unavailable Unavailable VINICIUS AGUIRRE MD Unavailable Unavailable KHAIRALLAH, RAMZI MD Unavailable Unavailable KHAIRALLAH, RAMZI MD Unavailable Unavailable KHAIRALLAH, RAMZI MD Unavailable Unavailable KHAIRALLAH, RAMZI MD Unavailable Unavailable KHAIRALLAH, RAMZI MD Unavailable Unavailable KHAIRALLAH, RAMZI MD Unavailable Unavailable KHAIRALLAH, RAMZI MD Unavailable Unavailable KHAIRALLAH, RAMZI MD Unavailable Unavailable KHAIRALLAH, RAMZI MD Unavailable Unavailable KHAIRALLAH, RAMZI MD Unavailable Unavailable KHAIRALLAH, RAMZI MD Unavailable Unavailable KHAIRALLAH, RAMZI MD Unavailable Unavailable KHAIRALLAH, RAMZI MD Unavailable Unavailable KHAIRALLAH, RAMZI MD Unavailable Unavailable KHAIRALLAH, RAMZI MD Unavailable Unavailable KHAIRALLAH, RAMZI MD Unavailable Unavailable KHAIRALLAH, RAMZI MD Unavailable Unavailable KHAIRALLAH, RAMZI MD Unavailable Unavailable KHAIRALLAH, RAMZI MD Unavailable Unavailable KHAIRALLAH, RAMZI MD Unavailable Unavailable KHAIRALLAH, RAMZI MD Unavailable Unavailable KHAIRALLAH, RAMZI MD Unavailable Unavailable KHAIRALLAH, RAMZI MD Unavailable Unavailable KHAIRALLAH, RAMZI MD Unavailable Unavailable KHAIRALLAH, RAMZI MD Unavailable Unavailable KHAIRALLAH, RAMZI MD Unavailable Unavailable KHAIRALLAH, RAMZI MD Unavailable Unavailable KHAIRALLAH, RAMZI MD Unavailable Unavailable KHAIRALLAH, RAMZI MD Unavailable Unavailable KHAIRALLAH, RAMZI MD Unavailable Unavailable KHAIRALLAH, RAMZI MD Unavailable Unavailable KHAIRALLAH, RAMZI MD Unavailable Unavailable KHAIRALLAH, RAMZI MD Unavailable Unavailable KHAIRALLAH, RAMZI MD Unavailable Unavailable KHAIRALLAH, RAMZI MD Unavailable Unavailable KHAIRALLAH, RAMZI MD Unavailable Unavailable KHAIRALLAH, RAMZI MD Unavailable Unavailable KHAIRALLAH, RAMZI MD Unavailable Unavailable KHAIRALLAH, RAMZI MD Unavailable Unavailable KHAIRALLAH, RAMZI MD Unavailable Unavailable KHAIRALLAH, RAMZI MD Unavailable Unavailable KHAIRALLAH, RAMZI MD Unavailable Unavailable KHAIRALLAH, RAMZI MD Unavailable Unavailable KHAIRALLAH, RAMZI MD Unavailable Unavailable KHAIRALLAH, RAMZI MD Unavailable Unavailable KHAIRALLAH, RAMZI MD Unavailable Unavailable KHAIRALLAH, RAMZI MD Unavailable Unavailable KHAIRALLAH, RAMZI MD Unavailable Unavailable KHAIRALLAH, RAMZI MD Unavailable Unavailable KHAIRALLAH, RAMZI MD Unavailable Unavailable KHAIRALLAH, RAMZI MD Unavailable Unavailable VINICIUS AGUIRRE MD Unavailable Unavailable VINICIUS AGUIRRE MD Unavailable Unavailable VINICIUS AGUIRRE MD Unavailable Unavailable ORDONEZ, NATE CHANO TEAM CDL DRIVER-C, MSN Unavailable Unavailab le ORDONEZ, NATE CHANO TEAM CDL DRIVER-C, MSN Unavailable Unavailab le ORDONEZ, NATE CHANO TEAM CDL DRIVER-C, MSN Unavailable Unavailab le ORDONEZ, NATE CHANO TEAM CDL DRIVER-C, MSN Unavailable Unavailab le ORDONEZ, NATE CHANO TEAM CDL DRIVER-C, MSN Unavailable Unavailab le ORDONEZ, NATE CHANO TEAM CDL DRIVER-C, MSN Unavailable Unavailab le ORDONEZ, NATE CHANO TEAM CDL DRIVER-C, MSN Unavailable Unavailab le ORDONEZ, NATE CHANO TEAM CDL DRIVER-C, MSN Unavailable Unavailab le ORDONEZ, NATE CHANO TEAM CDL DRIVER-C, MSN Unavailable Unavailab le ORDONEZ, NATE CHANO TEAM CDL DRIVER-C, MSN Unavailable Unavailab le ORDONEZ, NATE CHANO TEAM CDL DRIVER-C, MSN Unavailable Unavailab le ORDONEZ, NATE CHANO TEAM CDL DRIVER-C, MSN Unavailable Unavailab le ORDONEZ, NATE CHANO TEAM CDL DRIVER-C, MSN Unavailable Unavailab le ORDONEZ, NATE CHANO TEAM CDL DRIVER-C, MSN Unavailable Unavailab le ORDONEZ, NATE CHANO TEAM CDL DRIVER-C, MSN Unavailable Unavailab le ORDONEZ, NATE CHANO TEAM CDL DRIVER-C, MSN Unavailable Unavailab le ORDONEZ, NATE CHANO TEAM CDL DRIVER-C, MSN Unavailable Unavailab le ORDONEZ, NATE CHANO TEAM CDL DRIVER-C, MSN Unavailable Unavailab le ORDONEZ, NATE CHANO TEAM CDL DRIVER-C, MSN Unavailable Unavailab le ORDONEZ, NATE CHANO TEAM CDL DRIVER-C, MSN Unavailable Unavailab le ORDONEZ, NATE CHANO TEAM CDL DRIVER-C, MSN Unavailable Unavailab le ORDONEZ, NATE CHANO TEAM CDL DRIVER-C, MSN Unavailable Unavailab le ORDONEZ, NATE CHANO TEAM CDL DRIVER-C, MSN Unavailable Unavailab le ORDONEZ, NATE CHANO TEAM CDL DRIVER-C, MSN Unavailable Unavailab le ORDONEZ, NATE CHANO TEAM CDL DRIVER-C, MSN Unavailable Unavailab le ORDONEZ, NATE CHANO TEAM CDL DRIVER-C, MSN Unavailable Unavailab le ORDONEZ, NATE CHANO TEAM CDL DRIVER-C, MSN Unavailable Unavailab le ORDONEZ, NATE CHANO TEAM CDL DRIVER-C, MSN Unavailable Unavailab le ORDONEZ, NATE CHANO TEAM CDL DRIVER-C, MSN Unavailable Unavailab le ORDONEZ, NATE CHANO TEAM CDL DRIVER-C, MSN Unavailable Unavailab le ORDONEZ, NATE CHANO TEAM CDL DRIVER-C, MSN Unavailable Unavailab le ORDONEZ, NATE CHANO TEAM CDL DRIVER-C, MSN Unavailable Unavailab le ORDONEZ, NATE CHANO TEAM CDL DRIVER-C, MSN Unavailable Unavailab le ORDONEZ, NATE CHANO TEAM CDL DRIVER-C, MSN Unavailable Unavailab le ORDONEZ, NATE CHANO TEAM CDL DRIVER-C, MSN Unavailable Unavailab le ORDONEZ, NATE CHANO TEAM CDL DRIVER-C, MSN Unavailable Unavailab le ORDONEZ, NATE CHANO TEAM CDL DRIVER-C, MSN Unavailable Unavailab le ORDONEZ, NATE CHANO TEAM CDL DRIVER-C, MSN Unavailable Unavailab le ORDONEZ, NATE CHANO TEAM CDL DRIVER-C, MSN Unavailable Unavailab le ORDONEZ, NATE CHANO TEAM CDL DRIVER-C, MSN Unavailable Unavailab le ORDONEZ, NATE CHANO TEAM CDL DRIVER-C, MSN Unavailable Unavailab le ORDONEZ, NATE CHANO TEAM CDL DRIVER-C, MSN Unavailable Unavailab le ORDONEZ, NATE CHANO TEAM CDL DRIVER-C, MSN Unavailable Unavailab le Domingo, A Jeni TEAM CDL DRIVER Unavailable Unavailable Domingo, A Jeni TEAM CDL DRIVER Unavailable Unavailable Domingo, A Jeni TEAM CDL DRIVER Unavailable Unavailable Domingo, A Jeni TEAM CDL DRIVER Unavailable Unavailable Domingo, A Jeni TEAM CDL DRIVER Unavailable Unavailable Domingo, A Jeni TEAM CDL DRIVER Unavailable Unavailable Domingo, A Jeni TEAM CDL DRIVER Unavailable Unavailable Domingo, A Jeni TEAM CDL DRIVER Unavailable Unavailable Domingo, A Jeni TEAM CDL DRIVER Unavailable Unavailable Domingo, A Jeni TEAM CDL DRIVER Unavailable Unavailable Domingo, A Jeni TEAM CDL DRIVER Unavailable Unavailable Domingo, A Jeni TEAM CDL DRIVER Unavailable Unavailable Domingo, A Jeni TEAM CDL DRIVER Unavailable Unavailable Domingo, A Jeni TEAM CDL DRIVER Unavailable Unavailable Domingo, A Jeni TEAM CDL DRIVER Unavailable Unavailable Domingo, A Jeni TEAM CDL DRIVER Unavailable Unavailable Domingo, A Jeni TEAM CDL DRIVER Unavailable Unavailable Domingo, A Jeni TEAM CDL DRIVER Unavailable Unavailable Domingo, A Jeni TEAM CDL DRIVER Unavailable Unavailable Domingo, A Jeni TEAM CDL DRIVER Unavailable Unavailable Domingo, A Jeni TEAM CDL DRIVER Unavailable Unavailable Domingo, A Jeni TEAM CDL DRIVER Unavailable Unavailable Domingo, A Jeni TEAM CDL DRIVER Unavailable Unavailable Domingo, A Jeni TEAM CDL DRIVER Unavailable Unavailable Domingo, A Jeni TEAM CDL DRIVER Unavailable Unavailable Domingo, A Jeni TEAM CDL DRIVER Unavailable Unavailable Domingo, A Jeni TEAM CDL DRIVER Unavailable Unavailable Domingo, A Jeni TEAM CDL DRIVER Unavailable Unavailable Domingo, A Jeni TEAM CDL DRIVER Unavailable Unavailable Domingo, A Jeni TEAM CDL DRIVER Unavailable Unavailable Domingo, A Jeni TEAM CDL DRIVER Unavailable Unavailable Domingo, A Jeni TEAM CDL DRIVER Unavailable Unavailable Domingo, A Jeni TEAM CDL DRIVER Unavailable Unavailable Domingo, A Jeni TEAM CDL DRIVER Unavailable Unavailable Domingo, A Jeni TEAM CDL DRIVER Unavailable Unavailable Domingo, A Jeni TEAM CDL DRIVER Unavailable Unavailable Domingo, A Jeni TEAM CDL DRIVER Unavailable Unavailable Domingo, A Jeni TEAM CDL DRIVER Unavailable Unavailable Domingo, A Jeni TEAM CDL DRIVER Unavailable Unavailable Domingo, A Jeni TEAM CDL DRIVER Unavailable Unavailable Domingo, A Jeni TEAM CDL DRIVER Unavailable Unavailable Domingo, A Jeni TEAM CDL DRIVER Unavailable Unavailable Domingo, A Jeni TEAM CDL DRIVER Unavailable Unavailable Domingo, A Jeni TEAM CDL DRIVER Unavailable Unavailable Woods, Yary FACSIMILE OPERATOR Unavailable Unavailable Woods, Yary FACSIMILE OPERATOR Unavailable Unavailable Woods, Yary FACSIMILE OPERATOR Unavailable Unavailable Woods, Yary FACSIMILE OPERATOR Unavailable Unavailable Woods, Yary FACSIMILE OPERATOR Unavailable Unavailable Woods, Yary FACSIMILE OPERATOR Unavailable Unavailable Woods, Yary FACSIMILE OPERATOR Unavailable Unavailable Woods, Yary FACSIMILE OPERATOR Unavailable Unavailable Woods, Yary FACSIMILE OPERATOR Unavailable Unavailable Woods, Yary FACSIMILE OPERATOR Unavailable Unavailable Woods, Yary FACSIMILE OPERATOR Unavailable Unavailable Julio, R Milton PT Unavailable Unavailable Julio, R Milton PT Unavailable Unavailable Julio, R Milton PT Unavailable Unavailable Julio, R Milton PT Unavailable Unavailable Julio, R Milton PT Unavailable Unavailable Julio, R Milton PT Unavailable Unavailable Julio, R Milton PT Unavailable Unavailable Julio, R Milton PT Unavailable Unavailable Julio, R Milton PT Unavailable Unavailable Julio, R Milton PT Unavailable Unavailable Julio, R Milton PT Unavailable Unavailable Julio, R Milton PT Unavailable Unavailable Julio, R Milton PT Unavailable Unavailable Julio, R Milton PT Unavailable Unavailable Julio, R Milton PT Unavailable Unavailable Julio, R Milton PT Unavailable Unavailable Julio, R Milton PT Unavailable Unavailable Julio, R Milton PT Unavailable Unavailable Julio, R Milton PT Unavailable Unavailable Julio, R Milton PT Unavailable Unavailable Re-disclosure Warning The records that you are about to access may contain information from federally-assisted alcohol or drug abuse programs. If such information is present, then the following federally mandated warning applies: This information has been disclosed to you from records protected by federal confidentiality rules (42 CFR part 2). The federal rules prohibit you from making any further disclosure of this information unless further disclosure is expressly permitted by the written consent of the person to whom it pertains or as otherwise permitted by 42 CFR part 2. A general authorization for the release of medical or other information is NOT sufficient for this purpose. The Federal rules restrict any use of the information to criminally investigate or prosecute any alcohol or drug abuse patient.The records that you are about to access may contain highly sensitive health information, the redisclosure of which is protected by Article 27-F of the [facility] Public Health law. If you continue you may have access to information: Regarding HIV / AIDS; Provided by facilities licensed or operated by the [facility] Office of Mental Health; or Provided by the [facility] Office for People With Developmental Disabilities. If such information is present, then the following [facility] mandated warning applies: This information has been disclosed to you from confidential records which are protected by state law. State law prohibits you from making any further disclosure of this information without the specific written consent of the person to whom it pertains, or as otherwise permitted by law. Any unauthorized further disclosure in violation of state law may result in a fine or senior living sentence or both. A general authorization for the release of medical or other information is NOT sufficient authorization for further disc losure. Family History Family Member Name Family Member Gender Family Member Status Date o f Status Description Data Source(s) Unknown Male Problem (finding) 11/29/2014 12:00:00 AM EDT [facility] ([facility]) Unknown Male Problem [facility] ([facility] Encounters Encounter Providers Location Date Indications Data Source(s ) Outpatient Attender: Jenikarley Lane TEAM CDL DRIVER 08/12/2020 11:16 :00 AM [facility] Outpatient Attender: Milton Kim PT CPSCAORT-CPSCARHE 08:29:00 AM EST - 07/24/2020 08:30:00 AM EST [facility] Patient discharged. Attender: VINICIUS AGUIRRE MD [facility] 07/16/2020 07:06:00 PM EST - 07/16/2020 07:06:00 PM EST [facility] ( [facility]) Outpatient Attender: Vee Ramirez RPA-C 06/06/2020 11:00: 00 AM [facility] Outpatient Attender: Dee CASIANO 05/23/2020 01:00:00 PM [facility] Outpatient Attender: Dee Patel RNPReferrer: Fei CASIANO EMERGENCY ROOM-LAB 05/14/2020 10:22:00 AM EST - 05/14/2020 10:22:00 AM [facility] Outpatient Attender: Dee CASIANO 05/14/2020 09:40:00 AM [facility] Outpatient Attender: GIANFRNACO SEPULVEDA SRReferrer: Sivakumar Welch EMERGENCY ROOM- LAB REF 04/19/2020 08:17:00 AM EDT - 04/19/2020 08:17:00 AM [facility] [place] [address] [address] 04/03/2020 12:00:00 AM EDT eCW1 ([facility]) Outpatient Attender: Dee CASIANO 02/06/2020 07:36:00 AM [facility] Outpatient Attender: Yary de anda 11/18/2019 11:45:00 AM EDT [facility] ([facility]) Outpatient Attender: CHANO POOL, MSNReferr er: ED[facility]O [facility] EMERGENCY ROOM-LAB 10/05/2019 09:48:00 AM EDT - 10/05/2019 09:48:00 AM EDT [facility] 09/11/2019 12:42:00 PM EDT - 020 12:42:00 [facility] Outpatient Attender: CHANO POOL MSNReferr er: EDWARD[facility] KING 05/03/2019 02:00:00 PM EDT - 05/03/2019 02:00:00 PM EDT [facility] Medications Medication Brand Name Start Date Product Form Dose Route Admi nistrative Instructions Pharmacy Instructions Status Indications Reaction Description Data Source(s) 875-125 mg 11/27/2019 12:00:00 AM EDT tablet 14 TAKE ONE TABLET BY MOUTH TWICE A DAY TAKE ONE TABLET BY MOUTH TWICE A DAY SOLD: 11/27/2019 [facility] 5-325 mg 11/27/2019 12:00:00 AM EDT tablet 6 TAKE ONE TABLET BY MOUTH TWICE A DAY NEEDED FOR PAIN MAXIMUM DAILY DOSE = 2 TABLETS TAKE ONE TABLET BY MOUTH TWICE A DAY NEEDED FOR PAIN MAXIMUM DAILY DOSE = 2 TABLETS SOLD: 11/27/2019 [facility] Amoxicillin 875 MG / Clavulanate 125 MG Oral Tablet Am oxicillin/Clavulanate Potassium 11/18/2019 12:00:00 AM EDT ORAL active MEDENT ([facility]) Insurance Providers Payer name Policy type / Coverage type Policy ID Covered libertarian ID Covered libertarian's relationship to palmer Policy Palmer Plan Information [facility] MedAware CHOICE PLUS [id number] SP [id number] [facility] [place] CHOICE PLUS [id number] SP [id number] SELF PAY ONLY [id number] BCBS [place] 306/806 [id number] SP [id number] [employer] [id number] S [id number] [employer] PLANS [id number] S [id number] SELF PAY UNAVAILABLE S UNAVAILA BLE [facility] [id number] S [id number] Med[employer] HEALTH PLAN O [id number] S [id number] [facility] [id number] S [id number] ANSI-Commercial [id number] [employer] [facility] Commercial [id number] Self [id number] [facility] Commercial [id number] Self [id number] ANSI-Commercial [id number] [employer] [place] Commercial [id number] Self [id number] [facility] Commercial [id number] Self [id number] [facility] Commercial [id number] Self [id number] [employer] [place] Commercial [id number] Self [id number] [facility] Commercial [id number] Self [id number] [place] Par F [id number] SELF [id number] [place] Par F [id number] SELF [id number] [place] Par F [id number] SELF [id number] [place] Par F [id number] SELF [id number] [employer] Blue Shield P [id number] SELF [id number] [facility] Commercial [id number] Self [id number] SELF PAY UNAVAILABLE Patient UNAVAILA BLE EXCELLUS H [id number] Self [id number] EXCELLUS BLUE CROSS BLUE SHIELD HEA [id number] SE [id number] EXCELLUS BCBS B [id number] S [id number] EXCELLUS BCBS B [id number] S [id number] [place] 306/806 [id number] SP [id number] [place] PPO 302/307 [id number] SP [id number] BCBS[employer] Commercial Self BS/W/Id#Prefix/W ALL #'S Commercial Self ALLSTATE INS CO NO FAULT [id number] SP [id number] PROGRESSIVE CO NO FAULT [id number] SP [id number] COMBINED LIFE INSURANCE CO [id number] SP [id number] BCBS [place]AT[place] 306/806 [id number] SP [id number] BC EXC PLANS 1 [id number] 1 [id number] SELF PAY 2 UNAVAILABLE 1 UNAVAILA BLE [id number] Problems, Conditions, and Diagnoses Code Display Name Description Problem Type Effective Dates Data Source(s) E78.49 OTHER HYPERLIPIDEMIA OTHER HYPERLIPIDEMIA Diagnosis 06/06/2020 11:00:00 [facility] I49.9 Cardiac arrhythmia, unspecified CARDIAC ARRHYTHMIA, UN SPECIFIED Diagnosis 06/06/2020 11:00:00 AM [facility] M35.00 Sicca syndrome, unspecified SICCA SYNDROME, UNSPECIFIE D Diagnosis 06/06/2020 11:00:00 AM [facility] I10 Essential (primary) hypertension ESSENTIAL (PRIMARY) H YPERTENSION Diagnosis 06/06/2020 11:00:00 AM [facility] K08.9 Disorder of teeth and supporting structu res, unspecified DISORDER OF TEETH AND SUPPORTING STRUCTURES, UNSPE Diagnosis 06/06/2020 11:00:00 [facility] Z01.818 Encounter for other preprocedural examin ation ENCOUNTER FOR OTHER PREPROCEDURAL EXAMINATION Diagnosis 06/06/2020 11:00:00 AM [facility] E03.9 Hypothyroidism, unspecified HYPOTHYROIDISM, UNSPECIFIE D Diagnosis 05/14/2020 10:22:00 AM [facility] E55.9 Vitamin D deficiency, unspecified VITAMIN D DEFI CIENCY, UNSPECIFIED Diagnosis 05/14/2020 10:22:00 AM [facility] I47.1 Supraventricular tachycardia SUPRAVENTRICULAR TACHYCAR LINDSEY Diagnosis 05/14/2020 10:22:00 AM [facility] M32.9 Systemic lupus erythematosus, unspecifie d SYSTEMIC LUPUS ERYTHEMATOSUS, UNSPECIFIED Diagnosis 05/14/2020 10:22:00 AM [facility] Z23 Encounter for immunization ENCOUNTER FOR IMMUNIZATION Diagnosis 05/14/2020 09:40:00 AM [facility] E66.3 Overweight OVERWEIGHT Diagnosis 05/14/2020 09:40:00 AM [facility] F41.8 Other specified anxiety disorders OTHER SPECIFIE D ANXIETY DISORDERS Diagnosis 05/14/2020 09:40:00 AM [facility] B37.9 Candidiasis, unspecified CANDIDIASIS, UNSPECIFIED Diag nosis 05/14/2020 09:40:00 AM [facility] M54.2 Cervicalgia CERVICALGIA Diagnosis 05/14/2020 09:40:00 AM [facility] K21.9 Gastro-esophageal reflux disease without esophagitis GASTRO-ESOPHAGEAL REFLUX DISEASE WITHOUT ESOPHAGITIS Diagnosis 05/14/2020 09:40:00 AM [facility] R53.81 Other malaise OTHER MALAISE Diagnosis 04/19/2020 08:17:00 AM [facility] R05 Cough COUGH Diagnosis 04/19/2020 08:17:00 AM [facility] R50.9 Fever, unspecified FEVER, UNSPECIFIED Diagnosis 08:17:00 AM [facility] Z68.28 Body mass index (BMI) 28.0-28.9, adult B CLEOPATRA MASS INDEX (BMI) 28.0-28.9, ADULT Diagnosis 02/06/2020 07:36:00 AM [facility] l G43.809 Other migraine, not intractable, without status migrainosus OTHER MIGRAINE, NOT INTRACTABLE, WITHOUT STATUS FL Diagnosis 0 07:36:00 AM [facility] I47.9 Paroxysmal tachycardia, unspecified PAROXYSMAL T ACHYCARDIA, UNSPECIFIED Diagnosis 02/06/2020 07:36:00 AM [facility] T36.95XA Adverse effect of unspecified systemic a ntibiotic, initial encounter ADVERSE EFFECT OF UNSP SYSTEMIC ANTIBIOTIC, INIT E Diagnosis 10/2019 07:36:00 AM [facility] Z00.00 Encounter for general adult medical examination without abnormal findings ENCNTR FOR GENERAL ADULT MEDICAL EXAM W/O ABNORMAL FINDINGS Diagnosis 02/06/2020 07:36:00 AM [facility] Z13.21 Encounter for screening for nutritional disorder ENCOUNTER FOR SCREENING FOR NUTRITIONAL Diagnosis 10/05/2019 09:48:00 AM [facility] l R76.8 Other specified abnormal immunological f indings in serum OTHER SPECIFIED ABNORMAL IMMUNOLOGICAL F Diagnosis 10/05/2019 09:48:00 AM [facility] R78.6 Finding of steroid agent in blood FINDING OF ANASTASIA ROID AGENT IN BLOOD Diagnosis 10/05/2019 09:48:00 AM [facility] Results ID Date Data Source [id number] 08/12/2020 01:10:00 PM EST [facility] Name Value Range Interpretation Code Description Data Antonette rce(s) Supporting Document(s) SARS coronavirus 2 RNA Not Detected [facility] This lab was ordered by [facility] and reported by [facility]. ID Date Data Source [id number] 08/08/2020 01:00:00 PM EST [facility] Name Value Range Interpretation Code Description Data [facility] rce(s) Supporting Document(s) SARS coronavirus 2 RNA [Presence] in Res piratory specimen by [place] with probe detection NEGATIVE [facility] This lab was ordered by [facility] a nd reported by [facility]. ID Date Data Source [id number] 05/15/2020 08:07:00 AM EST [facility] Name Value Range Interpretation Code Description Data [facility] rce(s) Supporting Document(s) Vitamin D, 25-Hydroxy 19.8 ng/mL 30.0-100.0 Below low normal [facility] Vitamin D deficiency has been defined by the Milner ofMedicine and an Endocrine Society practice guideline as alevel of serum 25-OH vitamin D less than 20 ng/mL (1,2).The Endocrine Society went on to further define vitamin Dinsufficiency as a level between 21 and 29 ng/mL (2).1. IOM (Milner of Medicine). 2010. Dietary reference intakes for calcium and D. [place]: The National Academies Press.2. Leigh CARTAGENA, Mei FRAGOSO, Dhaval NG, et al. Evaluation, treatment, and prevention of vitamin D deficiency: an Endocrine Society clinical practice guideline. JCEM. 2010; 96(7):1911-30. ID Date Data Source [id number] 05/15/2020 08:06:00 AM EST [facility] l Name Value Range Interpretation Code Description [facility] Supporting Document(s) VITAMIN D, 25-HYDROXY 19.8 ng/mL 30.0-100.0 [facility] Vitamin D deficiency has been defined by the Milner ofMedicine and an Endocrine Society practice guideline as alevel of serum 25-OH vitamin D less than 20 ng/mL (1,2).The Endocrine Society went on to further define vitamin Dinsufficiency as a level between 21 and 29 ng/mL (2).1. IOM (Milner of Medicine). 2010. Dietary reference intakes for calcium and D. Al [place]: The National Academies Press.2. Leigh CARTAGENA, Mei FRAGOSO, Dhaval NG, et al. Evaluation, treatment, and prevention of vitamin D deficiency: an Endocrine Society clinical practice guideline. JCEM. 2010; 96(7):1911- 30.Performed at: RN - [facility] [address] [id number] Director: Priya Jordan MD, Phone: [phone] ID Date Data Source [id number] 05/14/2020 11:22:00 AM EST [facility] Name Value Range Interpretation Code Description Data [facility] Supporting Document(s) CHOLESTEROL 240 mg/dL 0-200 [facility] TRIGLYCERIDES 119 mg/dL 0-150 [facility] LDL CHOLESTEROL 110 mg/dL 0-100 H [facility] HDL CHOLESTEROL 106 mg/dL 40-60 H [facility] CHOL/HDL RATIO 2.3 0.0-5.0 [facility] ID Date Data Source [id number] 05/14/2020 11:22:00 AM [facility] l Name Value Range Interpretation Code Description Data Antonette rce(s) Supporting Document(s) GLUCOSE 80 mg/dL 74-106 [facility] BLOOD UREA NITROGEN 19 mg/dL 7-18 H [facility] ital CREATININE 0.8 mg/dL 0.6-1.0 [facility] SODIUM 140 mmol/L 136-145 [facility] POTASSIUM 4.6 mmol/L 3.5-5.1 [facility] CHLORIDE 100 mmol/L 98-107 [facility] CO2 29 mmol/L 21-32 [facility] CALCIUM 9.6 mg/dL 8.5-10.1 [facility] ANION GAP 11.0 mmol/L 5-12 [facility] GLOMERULAR FILTRATION RATE 74 mL/min [facility] GFR IS CALCULATED IN mL/min/1.73m2 ADOLFO L FUNCTION: >90MILDLY DECREASED: 60-89MILDY TO MODERATELY DECREASED: 45-59 MODERATELY TO SEVERELY DECREASED: 30-44SEVERELY DECREASED: 15-29RENAL FAILURE: <15 AST 22 U/L 15-37 [facility] ALT 34 U/L 12-78 [facility] ALKALINE PHOSPHATASE 65 U/L 46-116 [facility] pital TOTAL BILIRUBIN 0.2 mg/dL 0.2-1.0 [facility] TOTAL PROTEIN 7.7 g/dl 6.4-8.2 [facility] ALBUMIN 4.3 gm/dL 3.4-5.0 [facility] ID Date Data Source [id number] 05/14/2020 11:10:00 AM [facility] l Name Value Range Interpretation Code Description Data Antonette rce(s) Supporting Document(s) FREE T4 0.76 ng/dL 0.76-1.46 [facility] ID Date Data Source [id number] 05/14/2020 11:10:00 AM [facility] Name Value Range Interpretation Code Description Data Antonette rce(s) Supporting Document(s) TSH 0.79 uIU/mL 0.36-3.74 [facility] ID Date Data Source [id number] 05/14/2020 10:41:00 AM [facility] l Name Value Range Interpretation Code Description Data [facility] Supporting Document(s) WHITE BLOOD COUNT 5.6 K/mm3 4.0-10.0 [facility] al RED BLOOD COUNT 4.17 M/mm3 4.00-5.50 [facility] HEMOGLOBIN 12.8 gm/dL 12.0-16.0 [facility] HEMATOCRIT 39.7 % 36.0-48.8 [facility] MEAN CELL VOLUME 95.2 fl 80-96 [facility] MEAN CORPUSCULAR HEMOGLOBIN 30.7 pg 27.0-31.0 [facility] MEAN CORPUSCULAR HGB CONC 32.2 g/dl 32.0-36.0 [facility] RED CELL DISTRIBUTION WIDTH 11.8 % 10.0-14.5 [facility] PLATELET COUNT 242 K/mm3 172-450 [facility] ID Date Data Source [id number] 04/21/2020 06:35:00 AM EDT [facility] Name Value Range Interpretation Code Description Data [facility](s) Supporting Document(s) SARS-CoV-2, [place] Not Detected Not Detected [facility] This nucleic acid amplification test was developed and its performancecharacteristics determined by [facility]. Nucleic acidamplification tests include PCR and TMA. This test has not been FDAcleared or approved. This test has been authorized by FDA under anEmergency Use Authorization (EUA). This test is only authorized forthe duration of time the declaration that circumstances existjustifying the authorization of the emergency use of in vitrodiagnostic tests for detection of SARS-CoV-2 virus and/or diagnosisof COVID-19 infection under section 564(b)(1) of the Act, 21 U.S.C.360bbb-3(b) (1), unless the authorization is terminated or revokedsooner.When diagnostic testing is negative, the possibility of a falsenegative result should be considered in the context of a patient'srecent exposures and the presence of clinical signs and symptomsconsistent with COVID- 19. An individual without symptoms of COVID-19and who is not shedding SARS-CoV-2 virus would expect to have anegative (not detected) result in this assay. ID Date Data Source [id number] 04/19/2020 08:00:00 AM EDT [facility] Name Value Range Interpretation Code Description Data Antonette rce(s) Supporting Document(s) SARS coronavirus 2 RNA [facility] This lab was ordered by [facility] a nd reported by [facility]. ID Date Data Source [id number] 04/21/2020 06:36:00 AM EDT [facility] al Name Value Range Interpretation Code Description Data Antonette rce(s) Supporting Document(s) SARS COV2 [facility] Not Detected Not Detected [facility] This nucleic acid amplification test was developed and itsperformance characteristics determined by [facility]. Nucleic acid amplification tests include PCRand TMA. This test has not been FDA cleared or approved.This test has been authorized by FDA under an Emergency UseAuthorization (EUA). This test is only authorized forthe duration of time the declaration that circumstancesexist justifying the authorization of the emergency use ofin vitro diagnostic tests for detection of SARS-CoV-2 virusand/or diagnosis of COVID-19 infection under acanlvt253(b)(1) of the Act, 21 U.S.C. 360bbb-3(b) (1), unless theauthorization is terminated or revoked sooner.When diagnostic testing is negative, the possibility of afalse negative result should be considered in the contextof a patient's recent exposures and the presence ofclinical signs and symptoms consistent with COVID-19. Anindividual without symptoms of COVID-19 and who is notshedding SARS-CoV-2 virus would expect to have a negative(not detected) result in this assay.Performed at: [address] [id number] Director: Priya Jordan MD, Phone: [phone] ID Date Data Source [id number] 10/06/2019 06:05:00 AM EDT [facility] Name Value Range Interpretation Code Description Data Antonette rce(s) Supporting Document(s) VITAMIN D, 25-HYDROXY 22.6 ng/mL 30.0-100.0 [facility] Vitamin D deficiency has been defined by the Milner ofMedicine and an Endocrine Society practice guideline as alevel of serum 25-OH vitamin D less than 20 ng/mL (1,2).The Endocrine Society went on to further define vitamin Dinsufficiency as a level between 21 and 29 ng/mL (2).1. IOM (Milner of Medicine). 2010. Dietary reference intakes for calcium and D. [place]: The National Academies Press.2. Leigh CARTAGENA, Mei FRAGOSO, Dhaval NG, et al. Evaluation, treatment, and prevention of vitamin D deficiency: an Endocrine Society clinical practice guideline. JCEM. 2010; 96(7):1911- 30.Performed at: RN - [facility] [address] [id number] Director: Priya Jordan MD, Phone: [phone] ID Date Data Source [id number] 10/06/2019 06:05:00 AM EDT [facility] Name Value Range Interpretation Code Description Data Antonette rce(s) Supporting Document(s) Vitamin D, 25-Hydroxy 22.6 ng/mL 30.0-100.0 Below low normal [facility] Vitamin D deficiency has been defined by the Milner ofMedicine and an Endocrine Society practice guideline as alevel of serum 25-OH vitamin D less than 20 ng/mL (1,2).The Endocrine Society went on to further define vitamin Dinsufficiency as a level between 21 and 29 ng/mL (2).1. IOM (Milner of Medicine). 2010. Dietary reference intakes for calcium and D. Al [place]: The National Academies Press.2. Leigh CARTAGENA, Mei FRAGOSO, Dhaval NG, et al. Evaluation, treatment, and prevention of vitamin D deficiency: an Endocrine Society clinical practice guideline. JCEM. 2010; 96(7):1911-30. Procedure Social History Code Duration Value Status Description Data Source(s ) Smoking 11/18/2019 12:00:00 AM EDT Patient is a former smoker completed Patient is a former smoker [facility] ([facility]) Vital Signs ID Date Data Source UNK Name Value Range Interpretation Code Description Data Source(s) Body mass index (BMI) [Ratio] 24.4 kg/m2 24.4 k g[facility]m2 [facility] Body height 69 [in_i] 69 [in_i] [facility] ([facility]) 5'9" Body weight 165.00 [lb_av] 165.00 [lb_av] [facility] ([facility]) Body temperature 97.6 [degF] 97.6 [degF] [facility] ([facility]) Oxygen saturation in Arterial blood by Pulse oximetry 99 % 99 % [facility] ([facility]) Respiratory rate 17 /min 17 /min [facility] ( [facility]) Heart rate 80 /min 80 /min [facility] ([facility]) Diastolic blood pressure 71 mm[Hg] 71 mm[Hg] [facility] ([facility]) Systolic blood pressure 120 mm[Hg] 120 mm[Hg] [facility]
[2020-08-16] MEDS ORDERED: OXYMETAZOLINE 0.05% NASAL SPRAY (AFRIN) As Ordered ONE (09:01)
[2020-08-16] MEDS ORDERED: LIDOCAINE 2% 100MG/5ML SDV (FOR ANES.) As Ordered ONE (09:17)
[2020-08-16] MEDS ORDERED: ROCURONIUM BROMIDE 50 MG/5 ML VIAL As Ordered ONE (09:17)
[2020-08-16] MEDS ORDERED: propofoL 200 MG/20 ML VIAL As Ordered ONE (09:17)
[2020-08-16] MEDS ORDERED: dexameTHASONE 4 MG/ML 1ML VIAL (J1100 PER 1MG) As Ordered ONE ×2 (09:18→10:16)
[2020-08-16] MEDS ORDERED: MIDAZOLAM INJ 2MG/2ML VIAL (J2250 PER 1MG) As Ordered ONE (09:18)
[2020-08-16] MEDS ORDERED: fentaNYL 100 MCG/2 ML INJECTION (J3010) As Ordered ONE (09:18)
[2020-08-16] MEDS ORDERED: ONDANSETRON 4MG/2ML VIAL As Ordered ONE (09:19)
[2020-08-16] MEDS ORDERED: LIDOCAINE W/EPINEPHRINE 1% 20ML VIAL As Ordered ONE (09:43)
[2020-08-16] MEDS ORDERED: LACRILUBE (AKWA TEARS) OPHTH OINT 3.5 GM As Ordered ONE (10:18)
[2020-08-16] MEDS ORDERED: SUGAMMADEX SODIUM 500 MG/5 ML VIAL (BRIDION) As Ordered ONE (10:18)
[2020-08-16] MEDS ORDERED: ACETAMINOPHEN 1000MG 100ML IV BTL (OFIRMEV) (J0131 PER 10MG) As Ordered ONE (10:18)
[2020-08-16] MEDS ORDERED: ONDANSETRON 4MG/2ML VIAL IV PRN (11:00)
[2020-08-16] MEDS ORDERED: LR 1,000 ML IV SCH ×2 (11:00→11:15)
[2020-08-16] MEDS ORDERED: oxyCODONE 5MG TAB PO PRN (11:00)
[2020-08-16] MEDS ORDERED: HYDROMORPHONE HCL 0.5 MG/ 0.5 ML SYRINGE (J1170 PER 1) IV PRN (11:00)
[2020-08-16] MEDS ORDERED: fentaNYL 100 MCG/2 ML INJECTION (J3010) IV PRN (11:00)
[2020-08-16 11:53] VITALS: BP 128/73
--- NOTE | 2020-08-17 12:17 | RO ---
OPERATIVE NOTE DATE OF OPERATION: 08/16/2020 PREOPERATIVE DIAGNOSIS: Non-restorable teeth. POSTOPERATIVE DIAGNOSIS: Non-restorable teeth. PROCEDURE PERFORMED: Extraction of teeth #3, 4, 5, 6, 7, 8, 9, 10, 11, 12, 13, 14, 20, 21, 22, 23, 24, 25, 26, 27, 28, 29. SURGEON: Carlos Butt DMD [employer]ARKING [employer] SIGNALER: ESTIMATED BLOOD LOSS: 15 mL ANESTHESIA: General. SPECIMENS: Teeth. DESCRIPTION OF PROCEDURE Extraction of teeth #3,4,5,6,7,8,9,10,11,12,13,14,20,21,22,23,24,25,26,27,28,29 performed. 3-0 gut placed. The rest of the dictation will be completed on [employer]
--- NOTE | 2020-10-31 13:56 | RO ---
OPERATIVE NOTE DATE OF OPERATION: 08/16/2020 ADDENDUM PREOPERATIVE DIAGNOSIS: Nonrestorable teeth. POSTOPERATIVE DIAGNOSIS: Nonrestorable teeth. PROCEDURE PERFORMED: Extraction of teeth 3, 4, 5, 6, 7, 8, 9, 10, 11, 12, 13, 14, 20, 21, 22, 23, 24, 25, 26, 27, 28, and 29. SURGEON: Carlos Butt DMD. NOTEMAN: None. ANESTHESIA: General. ESTIMATED BLOOD LOSS: 15 mL. DESCRIPTION OF PROCEDURE: Extraction of teeth 3, 4, 5, 6, 7, 8, 9, 10, 11, 12, 13, 14, 20, 21, 22, 23, 24, 25, 26, 27, 28, and 29 was performed. These extractions were surgical meaning that mucoperiosteal periosteal flap had to be retracted and either bone had to be removed or teeth had to be sectioned. These teeth were extracted surgically and the area was approximated using 3-0 Chromic gut. There were no complications with this procedure. The patient was extubated when criteria was met by anesthesia and sent to recovery in stable condition.
== END 2020-08-16 12:30 | disposition home or self-care (01) ==
LOC: M SDC 07:40
PROVIDERS: ATTEND Dentist Oral and Maxillofacial Surgery
DX: K08.89 Other specified disorders of teeth and supporting structures (principal); I47.1 Supraventricular tachycardia; I10 Essential (primary) hypertension; E03.9 Hypothyroidism, unspecified; K21.9 Gastro-esophageal reflux disease without esophagitis; D64.9 Anemia, unspecified; E53.8 Deficiency of other specified B group vitamins; M12.9 Arthropathy, unspecified; M54.9 Dorsalgia, unspecified; M79.7 Fibromyalgia; M32.9 Systemic lupus erythematosus, unspecified; F32.4 Major depressive disorder, single episode, in partial remission; F41.9 Anxiety disorder, unspecified; Z90.710 Acquired absence of both cervix and uterus; Z78.0 Asymptomatic menopausal state; J84.10 Pulmonary fibrosis, unspecified; K22.4 Dyskinesia of esophagus; Z91.041 Radiographic dye allergy status; Z91.048 Other nonmedicinal substance allergy status; Z91.013 Allergy to seafood; Z79.899 Other long term (current) drug therapy; Z79.890 Hormone replacement therapy; M35.00 Sjogren syndrome, unspecified; G43.809 Other migraine, not intractable, without status migrainosus; E55.9 Vitamin D deficiency, unspecified
CPT/HCPCS: 41899; 88300; J0131; J1100; J2250; J2405; J3010

== ENCOUNTER → 2020-10-09 | Outpatient (REF) ==
[~2020-10-09] MED LIST changes: -LR 1,000 ML IV ONE
== END ==
LOC: M LABSMTC 11:21
PROVIDERS: ATTEND Pediatrics
DX: Z11.52 Encounter for screening for COVID-19 (principal)

== ENCOUNTER 2020-11-14 22:12 | Emergency (ER) | payer OTHER ==
[~2020-11-14] VITALS: Ht 172.7 cm; Wt 77.3 kg
[2020-11-15] MEDS ORDERED: NS 1,000 ML IV ONE (00:05)
[2020-11-15 01:45] VITALS: BP 105/56
--- NOTE | 2020-11-15 05:03 | ECGEPIP ---
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
== END 2020-11-15 02:31 | disposition home or self-care (01) ==
LOC: M ED 22:12
DX: E86.0 Dehydration (principal); F12.229 Cannabis dependence with intoxication, unspecified; Z79.899 Other long term (current) drug therapy; Z79.890 Hormone replacement therapy

== ENCOUNTER → 2021-06-01 | Outpatient (REF) ==
[~2021-06-01] MED LIST changes: -CEFD1CAP8 PO; +CEFD300C41 PO; +OMEP40CA4 PO; -OMEP40CA97 PO
[2021-06-01 16:33] LABS: RSV AMPLIFICATION NEGATIVE (NEGATIVE)
== END ==
LOC: M EMP 15:31
PROVIDERS: ATTEND Family Medicine
DX: Z20.822 Contact with and (suspected) exposure to COVID-19 (principal)

== ENCOUNTER → 2021-07-04 | Outpatient (REF) ==
[~2021-07-04] MED LIST changes: +CEFD1CAP8 PO; -CEFD300C41 PO
== END ==
LOC: M LABSMTC 10:49
PROVIDERS: ATTEND Family Medicine
DX: Z11.52 Encounter for screening for COVID-19 (principal); Z20.822 Contact with and (suspected) exposure to COVID-19

== ENCOUNTER 2021-12-08 01:46 | Emergency (ER) | payer BC, OTHER ==
[~2021-12-08] VITALS: Ht 172.7 cm; Wt 81.5 kg
[~2021-12-08 01:46] MED LIST changes: -CEFD1CAP8 PO; +CEFD300C41 PO; -D31000TA2 PO; +VITA100093 PO
[2021-12-08] MEDS ORDERED: ATEN25TA PO (02:10)
[2021-12-08] MEDS ORDERED: VITA400C56 PO (02:10)
[2021-12-08 02:56] LABS: BASO % 0.5 % (0.0-1.0); EOS # 0.1 10^3/uL (0.0-0.5); EOS % 1.9 % (0.0-3.0); HEMATOCRIT 34.9 % (36.0-47.0); HEMOGLOBIN 11.4 g/dl (12.0-15.5); LYMPH # 2.5 10^3/uL (1.5-5.0); LYMPH % 33.4 % (24.0-44.0); MEAN CORPUSCULAR HEMOGLOBIN 30.7 pg (27.0-33.0); MEAN CORPUSCULAR HGB CONC 32.7 g/dl (32.0-36.5); MEAN CORPUSCULAR VOLUME 94.1 fl (80.0-96.0); MONO # 0.5 10^3/uL (0.0-0.8); MONO % 6.4 % (2.0-8.0); NEUTROPHILS # 4.3 10^3/uL (1.5-8.5); NEUTROPHILS % 57.7 % (36.0-66.0); PLATELET COUNT, AUTOMATED 219 10^3/uL (150-450); RED BLOOD COUNT 3.71 10^6/uL (4.00-5.40); WHITE BLOOD COUNT 7.4 10^3/uL (4.0-10.0)
[2021-12-08 03:18] LABS: BLOOD UREA NITROGEN 19 MG/DL (7-18); CALCIUM LEVEL 9.4 MG/DL (8.8-10.2); CARBON DIOXIDE LEVEL 29 MEQ/L (21-32); CHLORIDE LEVEL 105 MEQ/L (98-107); CREATININE FOR GFR 0.84 MG/DL (0.55-1.30); GLOMERULAR FILTRATION RATE > 60.0 (>45); GLUCOSE, FASTING 84 MG/DL (70-100); MAGNESIUM LEVEL 2.2 MG/DL (1.8-2.4); POTASSIUM SERUM 3.4 MEQ/L (3.5-5.1); SODIUM LEVEL 138 MEQ/L (136-145)
[2021-12-08 03:22] LABS: CK-MB VALUE MASS 2.8 NG/ML (<3.6); CPK CREATINE PHOSPHOKINASE 155 U/L (26-192); MB/CK RELATIVE INDEX 1.81 (< OR =4)
[2021-12-08 09:08] LABS: INR 0.89; PROTHROMBIN TIME 12.4 SECONDS (12.7-14.5)
[2021-12-08 09:09] LABS: PARTIAL THROMBOPLASTIN TIME 29.7 SECONDS (25.9-37.0)
[2021-12-08 09:12] LABS: D-DIMER QUANT 283.31 ng/ml (<500)
[2021-12-08 09:18] LABS: CK-MB VALUE MASS 2.4 NG/ML (<3.6); MB/CK RELATIVE INDEX 1.59 (< OR =4)
[2021-12-08 09:53] VITALS: BP 153/63
== END 2021-12-08 09:50 | disposition home or self-care (01) ==
LOC: M ED 01:46
DX: R07.89 Other chest pain (principal); R91.8 Other nonspecific abnormal finding of lung field; I10 Essential (primary) hypertension; M32.9 Systemic lupus erythematosus, unspecified; E03.9 Hypothyroidism, unspecified; Z90.710 Acquired absence of both cervix and uterus; Z91.013 Allergy to seafood; Z91.041 Radiographic dye allergy status; Z79.890 Hormone replacement therapy; Z79.899 Other long term (current) drug therapy

== ENCOUNTER → 2022-08-05 | Outpatient (REF) ==
[~2022-08-05] MED LIST changes: +ATEN25TA PO; +VITA400C56 PO
[2022-08-05 14:34] LABS: RSV AMPLIFICATION NEGATIVE (NEGATIVE)
== END ==
LOC: M EMP 11:55
PROVIDERS: ATTEND Family Medicine
DX: Z11.52 Encounter for screening for COVID-19 (principal)

== ENCOUNTER → 2023-05-06 | Outpatient (REF) ==
[~2023-05-06] MED LIST changes: -CEFD300C41 PO; +CEFD300C42 PO; -HYDR200T3 PO; +HYDR200T46 PO
== END ==
LOC: M EMP 08:51
PROVIDERS: ATTEND Family Medicine
DX: Z11.52 Encounter for screening for COVID-19 (principal)

== ENCOUNTER → 2023-12-06 | Outpatient (REF) ==
[~2023-12-06] MED LIST changes: +CEFD1CAP9 PO; -CEFD300C42 PO
== END ==
LOC: M EMP 10:30
PROVIDERS: ATTEND Family Medicine
DX: Z11.52 Encounter for screening for COVID-19 (principal)

== ENCOUNTER → 2023-12-06 | Outpatient (REF) | LOC: M EMP 10:29 | PROVIDERS: ATTEND Family Medicine | DX: Z11.52 Encounter for screening for COVID-19 (principal) ==